=== PATIENT | male | born 1950 | race Caucasian/White ===

== ENCOUNTER 2017-02-07 17:10 | Emergency (ER) | payer OTHER ==
--- NOTE | 2017-02-07 17:43 | DIAGNOSTIC IMAGING REPORT ---
PROCEDURE: XR CHEST 2 VIEW INDICATION: SHORTNESS OF BREATH TECHNIQUE: PA and lateral views. COMPARISON: Compared to chest x-ray and 04/06/2016. FINDINGS: Lungs are clear. Heart and mediastinum are normal. There is reversal of mid thoracic kyphosis with mild to moderate degenerative changes at IMPRESSION: 1. Reversal of mid thoracic kyphosis with degenerative changes. 2. Otherwise negative chest.
--- NOTE | 2017-02-07 20:46 | ED NURSING NOTES ---
Clinical Report - Nurses [facility] [address] [place] [address] 02/07/2017 17:12 Patient: CAMPOS WAN TRIAGE Triage time 17:16. Acuity: LEVEL 3. Chief Complaint: COUGH and (Was put on Mometasone on Wednesday; says his cough he has had a while has gotten worse. Reports his back hurts from coughing. Says Wednesday he was afraid to lay down and go to sleep because he was afraid of not waking up because "in the lungs it was rattling."). Alert. --17:23 Bruce Washington R.N. 17:16 02/07/17. BP: 125/96 (regular adult cuff) taken on the left arm, via an automated monitor, while lying. HR: 102 (tachycardic). RR: 24 (regular, labored and rapid). O2 saturation: 97% on room air. Temp: 98 F (oral). Pain level now: 05/06. --17:23 Bruce Washington R.N. Weight: 90.7 kg stated. Height/Length: 70 inches Per Patient. BMI: 28.7. --17:17 Bruce Washington R.N. Medications AmLODIPine Besylate Oral (Tablet 5 mg) 1 tablet, daily. ASA Oral 81mg , daily. Rosuvastatin Calcium Oral (Tablet 40 mg), at bedtime. Spironolactone Oral (Tablet 50 mg), 2x a day. Sulfazine Oral (Tablet 500 mg) 3 tabs , 2 x daily. --17:18 Bruce Washington R.N. Mometasone Furoate Inhalation (Aerosol Powder Breath Activated 220 mcg/inh) 2 puffs, twice daily. --17:18 Bruce Washington R.N. Omalizumab Subcutaneous 350 mg, once monthly. --17:24 Bruce Washington R.N. SulfaSALAzine Oral (Tablet 500 mg) 3 tabs, 2x a day. --17:25 Bruce Washington R.N. Albuterol Sulfate Inhalation 90 mcg, PRN. --17:25 Bruce Washington R.N. Albuterol Sulfate HFA Inhalation. Cholecalciferol Oral (Tablet 1000 unit) 1 tablet. --17:26 Bruce Washington R.N. Metoprolol Tartrate Oral (Tablet 25 mg) 3 tabs, twice daily. --17:27 Bruce Washington R.N. Nitroglycerin Sublingual 0.4 mg, PRN. --17:27 Bruce Washington R.N. The following entry was struck by Bruce Washington R.N., 17:28 (02/07/17) Reason - other. [facility] Niacin Oral 500 mg, 3x a day. --17:18 Bruce Washington R.N. --END STRIKE>> The following entry was struck by Bruce Washington R.N., 17:28 (02/07/17) Reason - other. [facility]-- Folic Acid Oral. --17:18 Bruce Washington R.N. --END STRIKE>> The following entry was struck by Bruce Washington R.N., 17:27 (02/07/17) Reason - other. [facility]-- CycloSPORINE Oral 50mg , 2 x daily. --17:18 Bruce Washington R.N. --END STRIKE>> The following entry was struck by Bruce Washington R.N., 17:27 (02/07/17) Reason - other. [facility]-- Omeprazole Oral 20 mg, daily. --17:18 Bruce Washington R.N. --END STRIKE>> The following entry was struck by Bruce Washington R.N., 17:27 (02/07/17) Reason - other. [facility]-- Cyanocoballamin 1000mg, daily. --17:18 Bruce Washington R.N. --END STRIKE>> The following entry was struck and corrected by Bruce Washington R.N., 17:26 (02/07/17) Reason for correction - other(correction). <<[facility] ENTRY-- AmLODIPine Besylate Oral 10 mg, daily. --17:18 Bruce Washington R.N. --END STRIKE>> The following entry was struck and corrected by Bruce Washington R.N., 17:25 (02/07/17) Reason for correction - other(correction). <<[facility] ENTRY-- Mometasone Furoate Inhalation. --17:18 Bruce Washington R.N. --END STRIKE>> The following entry was struck and corrected by Bruce Washington R.N., 17:24 (02/07/17) Reason for correction - other(correction). <<[facility] ENTRY-- Rosuvastatin Calcium Oral 5 mg, daily. --17:18 Bruce Washington R.N. --END STRIKE>> The following entry was struck and corrected by Bruce Washington R.N., 17:23 (02/07/17) Reason for correction - other(correction). <<STRICKEN ENTRY-- Spironolactone Oral (Tablet 25 mg) 1 tablet, 2x a day. --17:18 Bruce Washington R.N. --END STRIKE>>. Medication/allergy information source: the patient. --17:23 Bruce Washington R.N. Allergies LIsinopril. --17:18 Bruce Washington R.N. History Arrived by private vehicle. Historian: patient. Unaccompanied. Primary physician (at the [facility]). Onset. (Ongoing for a few days). He has had fatigue, chest pain (Relates it to the cough), difficulty breathing and pedal edema. He has had a cough (Mostly dry, sometimes productive). No chills, fever or sweating episodes. Denies muscle aches or poor appetite. He has not had weight loss. Treatment CREDIT PROCESSOR: None. SOCIAL HX: Never smoker. Heavy alcohol use; consumes four beers a day. No drug use. He has not traveled outside the [place] The patient was not exposed to MRSA. ABUSE ASSESSMENT: Abuse assessment: The patient was asked "Do you feel safe in your home?" and "Has anyone hurt you or threatened to hurt you?". No report of abuse. SELF HARM ASSESSMENT: A self harm assessment was performed. The patient answered "no" to the question "Do you have thoughts of harming or killing yourself?" and "Have you recently had thoughts about harming or killing others?". FALL RISK ASSESSMENT: Fall risk assessment completed. No fall risk identified. NUTRITIONAL RISK ASSESSMENT: The nutritional risk assessment revealed no deficiencies. LEARNING NEEDS ASSESSMENT: The learning needs assessment revealed no barriers. FUNCTIONAL ASSESSMENT: Functional assessment performed: wears glasses- this visual impairment is an ongoing problem. SKIN INTEGRITY ASSESSMENT: Skin integrity risk assessment completed. No skin integrity risk identified. --17:23 Bruce Washington R.N. PROBLEMS: Angina. Coronary Artery Disease. Hyperlipidemia. Angioedema. Immunizations. Cancer. Hypertension. Hypercholesterolemia. Myocardial Infarction. --17:18 Bruce Washington R.N. Pericarditis. --17:21 Bruce Washington R.N. ADDITIONAL SURGERIES: Right testicle removed . Surgery on 3rd and 4th digits right hand . Tonsillectomy. --17:18 Bruce Washington R.N. Assessment GENERAL / NEURO / PSYCH: Appears in distress. Timothy Coma Scale: 15- eyes open spontaneously (4); best verbal response- oriented x 4 (5); best motor response- obeys commands (6). RESPIRATORY: Mild respiratory distress. Mild accessory muscle use. Nonproductive cough. SKIN: Skin is warm and dry. --17:23 Bruce Washington R.N. Interventions ID and allergy band on patient. To treatment room. --17:23 Bruce Washington R.N. PHYSICAL ASSESSMENT Ambulatory to room. GENERAL / NEURO / PSYCH: Alert. Oriented X 4. Appears in no acute distress. HEENT: Pupils equal, round and reactive to light. Ears within normal limits. Nares within normal limits. Mouth within normal limits upon inspection. Pharynx within normal limits. Voice within normal limits. Mucous membranes are pink. RESPIRATORY: Mild respiratory distress. The patient can speak a few words at a time. Cough. ( non productive cough. +exp wheezing noted bilat). CVS: Normal sinus rhythm noted. Capillary refill less than 2 seconds. SKIN: Skin is warm and dry. Normal skin turgor. --19:05 Bruce Washington R.N. NURSING PROGRESS NOTES The initial plan of care for this patient has been created This plan of care was discussed with the patient. monitor technician, pulse oximeter and NIBP monitor placed on patient; telemetry monitor- Lead II. Patient gowned. Reassurance given to the patient. Call light placed in reach. Side rails up x 1. Bed placed in lowest position. Brakes of bed on. Patient ready for evaluation- ED physician and PA notified. --17:23 Bruce Washington R.N. EKG time: (1730). EKG was ordered, performed by a tech and shown to the ED physician. --17:28 Bruce Washington R.N. 17:35 02/07/2017 Site #1 started via IV in the right wrist with an 20g angiocath, with aseptic technique and good blood return; one attempt. Blood drawn: rainbow set. Labeled in the presence of the patient. Saline lock flushed with 10 mL saline. --17:35 Bruce Washington R.N. 17:57 02/07/2017 SOLU-MEDROL (MethylPREDNISolone Sodium Succ) IVP 80 mg given over 2 minute(s) via site #1. Allergies verified and confirmed 5 rights. IV patency established. IV site checked: no pain, redness, or swelling. IV flushed thoroughly pre- and post-medication administration. --17:57 Bruce Washington R.N. 17:59 02/07/2017 Albuterol Neb TX Nebulizer 2.5 mg given. Given by the respiratory therapist. Allergies verified and confirmed 5 rights. --17:59 Bruce Washington R.N. ( Report received from Bruce Cueva RN). --19:03 Adair Villaseñor R.N. 19:38 02/07/2017 Started 2 gm of Rocephin (CefTRIAXone Sodium) IVPB in bag #1 50 mL; at 110 mL/hr over 20 minute(s) via site #1 via IV pump. Allergies verified and confirmed 5 rights. IV patency established. IV site checked: no pain, redness, or swelling. IV flushed thoroughly pre- and post-medication administration. --19:40 Adair Villaseñor R.N. 20:38 02/07/2017 Albuterol Neb TX Nebulizer 1 unit dose given. Given by the respiratory therapist. Allergies verified and confirmed 5 rights. --20:38 KeziaGerson hopkins. DISPOSITION / DISCHARGE 21:00 02/07/2017 Site #1 removed upon discharge. Bandaid applied. --21:00 Chani Rhodes R.N. 21:00 02/07/17. Condition at departure: improved. No learning barriers present. Discharge instructions provided and reviewed with the patient. Reviewed medication(s) side effects, precautions, dosing and course information. Prescription(s) given to the patient. Activity restrictions (rest) reviewed. Patient verbalized understanding. Written instructions provided in Egyptian. The patient was discharged by the physician. He was discharged home. He left the Emergency Department ambulatory and via private vehicle. Patient driving. --21:00 Chani Rhodes R.N. 20:56 02/07/17. BP: 129/91 (regular adult cuff) taken on the left arm. HR: 95 (irregular). RR: 25. O2 saturation: 96% on room air. Temp: 98.1 F (oral). Pain level now: 8/10. Additional comments: "all over from coughing". --21:00 Chani Rhodes R.N. Departure time: 21:Feb 07 2017. --21:04 Chani Rhodes R.N. Locked/Released at 02/07/2017 21:41 by Chani Rhodes R.N.
--- NOTE | 2017-02-07 20:46 | ED ORDER SUMMARY ---
..... Patient: CAMPOS WAN OrderSheet [facility] VisitID: [id number] [address] [place] [address] 66y, M Registration Date/Time: 02/07/2017 ORDER SHEET Weight: 90.7 kg (stated) Allergies: LIsinopril GENERAL ORDERS: Chest 2V Urgent (17:29 02/07/2017 EKoroleva P.A.-C) (Ack 17:31 Jamil) (17:35 LWhalen R.N.) Sandwich Machine Operator (Continuous) (17:29 02/07/2017 EKoroleva P.A.-C) (17:32 JDeElena R.N.) Cardiac Panel Stat (17:02/07/2017 EKoroleva P.A.-C) (Ack 17:31 Jamil) (17:34 LWhalen R.N.) BNP Urgent (17:02/07/2017 EKoroleva P.A.-C) (Ack 17:31 Brockroniel) (17:34 LWhalen R.N.) EKG - ER Stat (17:29 02/07/2017 EKoroleva P.A.-C) (Ack 17:31 Brockroniel) (17:32 JDeElena R.N.) MEDICATION ORDERS: Albuterol Neb Tx 2.5 mg (NOW, HHN) (17:49 02/07/2017 Elvi URENA) (17:59 LWhalen R.N.) Albuterol Neb Tx 2.5 mg (NOW, HHN) (20:25 02/07/2017 Elvi URENA) (Ack 20:27 [facility] ER Trade Recruiter) (20:38 MRobideau) IV FLUIDS: IV Saline Lock (17:29 02/07/2017 EKoroleva P.A.-C) (17:35 LWhalen R.N.) Solu-MEDROL IV 80 mg (NOW) (17:55 02/07/2017 Elvi URENA) (17:57 LWhalen R.N.) Rocephin IV 2 gm/50mL (NOW) (19:23 02/07/2017 Elvi URENA) (19:40 Delmer Anna) ORDER SHEET NOTES: [Electronically signed by Chani Rhodes R.N. (21:41 02/07/2017)] [Electronically signed by Davion Jack MD (09:39 02/08/2017)] [Electronically locked/signed by Chani Rhodes R.N. (21:41 02/07/2017)]
--- NOTE | 2017-02-07 20:46 | ED CLINICAL REPORT ---
Clinical Report - Physicians/Mid Levels [facility] [address] [place] [address] 02/07/2017 17:12 [facility]AN [id number] Time Seen: 17:33 Feb 07 2017. Arrived- By private vehicle. Historian- patient. CPT: ER phys charges level 4 plus (#[id number]). EKG interpretation (#[id number]). HISTORY OF PRESENT ILLNESS Chief Complaint: COUGH. 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 and is still present (worse). The illness is described as moderate. The patient has had a cough and chest discomfort. No fever, muscle aches or chills. Additional history - No known contact with a sick individual. Similar symptoms previously: Recent medical care: Not recently seen/assessed. REVIEW OF SYSTEMS No headache, eye discomfort, nausea, vomiting or diarrhea. No abdominal pain, hay fever, pedal edema, calf pain or difficulty with urination. No skin rash, enlarged lymph nodes or joint pain. All systems otherwise negative, except as recorded above. PAST HISTORY Angina. Coronary Artery Disease. Hyperlipidemia. Angioedema. Immunizations. Testicular Cancer. Hypertension. Hypercholesterolemia. Myocardial Infarction. Pericarditis. Cough variant asthma Hyperetensive renal insufficiency ADDITIONAL SURGERIES: Right testicle removed . Surgery on 3rd and 4th digits right hand . Tonsillectomy. Hyperlipidemia. Gastroesophageal reflux. Medications: Nitroglycerin Sublingual 0.4 mg, PRN. Metoprolol Tartrate Oral (Tablet 25 mg) 3 tabs, twice daily. Albuterol Sulfate HFA Inhalation. Cholecalciferol Oral (Tablet 1000 unit) 1 tablet. Albuterol Sulfate Inhalation 90 mcg, PRN. SulfaSALAzine Oral (Tablet 500 mg) 3 tabs, 2x a day. Omalizumab Subcutaneous 350 mg, once monthly. Mometasone Furoate Inhalation (Aerosol Powder Breath Activated 220 mcg/inh) 2 puffs, twice daily. AmLODIPine Besylate Oral (Tablet 5 mg) 1 tablet, daily. ASA Oral 81mg , daily. Rosuvastatin Calcium Oral (Tablet 40 mg), at bedtime. Spironolactone Oral (Tablet 50 mg), 2x a day. Sulfazine Oral (Tablet 500 mg) 3 tabs , 2 x daily. Allergies: LIsinopril. SOCIAL HISTORY Never smoker. Heavy alcohol use. No drug use. ADDITIONAL NOTES The nursing notes have been reviewed. PHYSICAL EXAM Vital Signs: 02/07/2017 17:16 BP: 125/96. HR: 102. RR: 24. O2 saturation: 97%. Temp: 98 F. Pain level now: 8/10. Appearance: Alert. Patient in mild distress. Eyes: Eyes normal inspection. ENT: Ears normal. Nose normal. Pharynx normal. Neck: Normal inspection. CVS: Tachycardia. Heart sounds normal. Pulses normal. Respiratory: Moderate respiratory distress with tachypnea (constant cough. No whoop.). Expiratory moderate bilateral wheezes posteriorly. Abdomen: Soft and nontender. Back: Normal inspection. Skin: Skin warm. Normal skin color. No rash. Extremities: Extremities exhibit normal ROM. No calf tenderness. No lower extremity edema. Neuro: Oriented X 3. No motor deficit. No sensory deficit. LABS, X-RAYS, AND EKG EKG: Rate: 94. Atrial fibrillation. Normal QRS complex. Q waves in lead II, III and aVF. Decreased QRS voltage in the precordial and limb leads. Left axis deviation. Non-specific ST segment / T wave abnormalities. Prior EKG unavailable. The study has been interpreted contemporaneously. The study has been independently viewed by me. The EKG appears to be a good tracing. Chest X-ray: Normal heart size. Mediastinum normal. No infiltrate. (thoracic DJD). Views: PA and lateral. The X-rays were independently viewed by me and interpreted by the radiologist. Laboratory Tests: CBC w Diff: (GALDINO: 02/07/2017 17:35) ( MsgRcvd 02/07/2017 17:49) Final results Test Result Flag Units (Reference) WHITE BLOOD COUNT 8.8 K/uL (4.5-11.5) RED BLOOD COUNT 4.79 M/uL (4.50-5.90) HEMOGLOBIN 15.1 gm/dL (13.5-17.5) HEMATOCRIT 44.8 % (41.0-53.0) MEAN CELL VOLUME 93 fL (80-100) MEAN CORPUSCULAR HGB 32 pg (26-34) MEAN CORPUSCULAR HGB CONC 34 g/dL (31-37) RED CELL DISTRIBUTION WIDTH 13.9 % (11.6-14.8) PLATELET COUNT 198 K/uL (150-400) NEUTROPHIL % 71.4 % (50-75) LYMPH % 15.8 L % (25-40) MONO % 6.8 % (3-14) EOSINOPHIL % 5.8 H % (0-4) BASOPHIL % 0.2 % (0-2) BNP: (GALDINO: 02/07/2017 17:35) ( [facility] 18[facility]08) Final results Test Result Flag Units (Reference) B-TYPE NATRIURETIC PEPTIDE 277 H pg/ml (5-100) CHEM 13 PANEL: (GALDINO: 02/07/2017 17:35) ( [facility] 02/07/2017 18:43) Final results Test Result Flag Units (Reference) GLUCOSE 125 H mg/dL (70-110) BUN 21 H mg/dL (7-18) CREATININE 1.8 H mg/dL (0.6-1.3) Estimated GFR 40.20 mL/min Estimated GFR- 48.72 mL/min Note: Persistent reduction over 3 months in eGFR<60 mL/min/1.73 m2 defines CKD. Patients with eGFR values>=60 mL/min/1.73 m2 may also have CKD if evidence ofpersistent proteinuria. Additional information may be foundat www.kidney.org. SODIUM 144 mmol/L (136-145) POTASSIUM 3.8 mmol/L (3.5-5.1) CHLORIDE 108 H mmol/L (98-107) CARBON DIOXIDE 22 mmol/L (21-32) CALCIUM 8.6 mg/dL (8.5-10.1) TOTAL PROTEIN 7.1 g/dL (6.4-8.2) ALBUMIN 3.5 g/dL (3.3-5.0) BILIRUBIN, TOTAL 0.4 mg/dL (0.0-1.0) ALKALINE PHOSPHATASE 109 U/L (46-116) AST (SGOT) 29 U/L (15-37) ALT (SGPT) 42 U/L (12-78) CPK 373 H U/L (24-260) MAGNESIUM 1.6 L mg/dL (1.8-2.4) CK-MB 3.2 ng/mL (0.5-3.2) %CKMB 0.9 % (0.0-4.0) TROPONIN I <0.05 L ng/mL (0.00-1.5) TROPONIN REFERENCE RANGE:<0.1 NEGATIVE0.1-1.5 INDETERMINANT>1.5 POSITIVE . PROGRESS AND PROCEDURES Course of Care: Duoneb HHN Solumedrol 80 mg IV Rocephin 2g IV Pt much better after treatment and wheezing nearly resolved. 20:00 02/07/17. records from the [place] show no hx of a-fib. ppatient has new onset atrial fibrillation. Rate is controlled so no need for medication. He is already on beta brianna. Discussed the increased stroke risk related to atrial fibrillation and the need for management either by conversion to normal sinus rhythm or for anticoagulation. Patient is aware and will call his PCP tomorrow to talk about the atrial fibrillation and further management. Patient/family counseled. Disposition: Discharged. Condition: stable and improved. CLINICAL IMPRESSION Mild persistent and intermittent asthma with an acute exacerbation. No status asthmaticus. Acute bacterial bronchitis. Acute bronchospasm New onset atrial fibrillation with controlled rate. INSTRUCTIONS No strenuous activity. Rest. Drink plenty of fluids. Warnings: Further evaluation is necessary. GENERAL WARNINGS: Return or contact your physician immediately if your condition worsens or changes unexpectedly, if not improving as expected, or if other problems arise. Your Current Medications: STOP TAKING THE FOLLOWING MEDICATIONS: Mometasone Furoate Inhalation : Aerosol Powder Breath Activated 220 mcg/inh, 2 puffs twice daily. CONTINUE TAKING THE FOLLOWING MEDICATIONS: Albuterol Sulfate HFA Inhalation. Albuterol Sulfate Inhalation : 90 mcg PRN. AmLODIPine Besylate Oral : Tablet 5 mg, 1 tablet daily. ASA Oral : 81mg daily. Cholecalciferol Oral : Tablet 1000 unit, 1 tablet. Metoprolol Tartrate Oral : Tablet 25 mg, 3 tabs twice daily. Nitroglycerin Sublingual : 0.4 mg PRN. Omalizumab Subcutaneous : 350 mg once monthly. Rosuvastatin Calcium Oral : Tablet 40 mg, at bedtime. Spironolactone Oral : Tablet 50 mg, 2x a day. SulfaSALAzine Oral : Tablet 500 mg, 3 tabs 2x a day. Sulfazine Oral : Tablet 500 mg, 3 tabs 2 x daily. Prescription Medications: Prednisone 20 mg: take 3 orally every day for 5 days. Dispense fifteen (15). No refills. Hydrocodone / APAP Liquid 7.5mg/325mg/15 mL: take ten (10) mL orally every 4 hours as needed. Dispense two hundred (200) mL. No refill. (for cough) Doxycycline 100 mg: Take 1 capsule orally every 12 hours for 10 days. No refill. Follow-up: Follow up with your doctor in two days. Call for the next available appointment. Reason for referral: because of new atrial fibrillation and cough. . Summary of care provided to patient. Understanding of the discharge instructions verbalized by patient. (Electronically signed by Davion Jack MD 02/08/2017 9:39)
--- NOTE | 2017-02-07 20:46 | ED CLINICAL REPORT ---
Clinical Report - Physicians/Mid Levels [facility] [address] [place] [address] 02/07/2017 17:12 [id number] Time Seen: 17:33 Feb 07 2017. Arrived- By private vehicle. Historian- patient. CPT: ER phys charges level 4 plus (#636301). EKG interpretation (#[id number]). HISTORY OF PRESENT ILLNESS Chief Complaint: COUGH. 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 and is still present (worse). The illness is described as moderate. The patient has had a cough and chest discomfort. No fever, muscle aches or chills. Additional history - No known contact with a sick individual. Similar symptoms previously: Recent medical care: Not recently seen/assessed. REVIEW OF SYSTEMS No headache, eye discomfort, nausea, vomiting or diarrhea. No abdominal pain, hay fever, pedal edema, calf pain or difficulty with urination. No skin rash, enlarged lymph nodes or joint pain. All systems otherwise negative, except as recorded above. PAST HISTORY Angina. Coronary Artery Disease. Hyperlipidemia. Angioedema. Immunizations. Testicular Cancer. Hypertension. Hypercholesterolemia. Myocardial Infarction. Pericarditis. Cough variant asthma Hyperetensive renal insufficiency ADDITIONAL SURGERIES: Right testicle removed . Surgery on 3rd and 4th digits right hand . Tonsillectomy. Hyperlipidemia. Gastroesophageal reflux. Medications: Nitroglycerin Sublingual 0.4 mg, PRN. Metoprolol Tartrate Oral (Tablet 25 mg) 3 tabs, twice daily. Albuterol Sulfate HFA Inhalation. Cholecalciferol Oral (Tablet 1000 unit) 1 tablet. Albuterol Sulfate Inhalation 90 mcg, PRN. SulfaSALAzine Oral (Tablet 500 mg) 3 tabs, 2x a day. Omalizumab Subcutaneous 350 mg, once monthly. Mometasone Furoate Inhalation (Aerosol Powder Breath Activated 220 mcg/inh) 2 puffs, twice daily. AmLODIPine Besylate Oral (Tablet 5 mg) 1 tablet, daily. ASA Oral 81mg , daily. Rosuvastatin Calcium Oral (Tablet 40 mg), at bedtime. Spironolactone Oral (Tablet 50 mg), 2x a day. Sulfazine Oral (Tablet 500 mg) 3 tabs , 2 x daily. Allergies: LIsinopril. SOCIAL HISTORY Never smoker. Heavy alcohol use. No drug use. ADDITIONAL NOTES The nursing notes have been reviewed. PHYSICAL EXAM Vital Signs: 02/07/2017 17:16 BP: 125/96. HR: 102. RR: 24. O2 saturation: 97%. Temp: 98 F. Pain level now: 8/10. Appearance: Alert. Patient in mild distress. Eyes: Eyes normal inspection. ENT: Ears normal. Nose normal. Pharynx normal. Neck: Normal inspection. CVS: Tachycardia. Heart sounds normal. Pulses normal. Respiratory: Moderate respiratory distress with tachypnea (constant cough. No whoop.). Expiratory moderate bilateral wheezes posteriorly. Abdomen: Soft and nontender. Back: Normal inspection. Skin: Skin warm. Normal skin color. No rash. Extremities: Extremities exhibit normal ROM. No calf tenderness. No lower extremity edema. Neuro: Oriented X 3. No motor deficit. No sensory deficit. LABS, X-RAYS, AND EKG EKG: Rate: 94. Atrial fibrillation. Normal QRS complex. Q waves in lead II, III and aVF. Decreased QRS voltage in the precordial and limb leads. Left axis deviation. Non-specific ST segment / T wave abnormalities. Prior EKG unavailable. The study has been interpreted contemporaneously. The study has been independently viewed by me. The EKG appears to be a good tracing. Chest X-ray: Normal heart size. Mediastinum normal. No infiltrate. (thoracic DJD). Views: PA and lateral. The X-rays were independently viewed by me and interpreted by the radiologist. Laboratory Tests: CBC w Diff: (GALDINO: 02/07/2017 17:35) ( MsgRcvd 02/07/2017 17:49) Final results Test Result Flag Units (Reference) WHITE BLOOD COUNT 8.8 K/uL (4.5-11.5) RED BLOOD COUNT 4.79 M/uL (4.50-5.90) HEMOGLOBIN 15.1 gm/dL (13.5-17.5) HEMATOCRIT 44.8 % (41.0-53.0) MEAN CELL VOLUME 93 fL (80-100) MEAN CORPUSCULAR HGB 32 pg (26-34) MEAN CORPUSCULAR HGB CONC 34 g/dL (31-37) RED CELL DISTRIBUTION WIDTH 13.9 % (11.6-14.8) PLATELET COUNT 198 K/uL (150-400) NEUTROPHIL % 71.4 % (50-75) LYMPH % 15.8 L % (25-40) MONO % 6.8 % (3-14) EOSINOPHIL % 5.8 H % (0-4) BASOPHIL % 0.2 % (0-2) BNP: (GALDINO: 02/07/2017 17:35) ( [facility] [place]/07[place] 18:08) Final results Test Result Flag Units (Reference) B-TYPE NATRIURETIC PEPTIDE 277 H pg/ml (5-100) CHEM 13 PANEL: (GALDINO: 02/07/2017 17:35) ( [facility] [place]07[facility] 18:43) Final results Test Result Flag Units (Reference) GLUCOSE 125 H mg/dL (70-110) BUN 21 H mg/dL (7-18) CREATININE 1.8 H mg/dL (0.6-1.3) Estimated GFR 40.20 mL/min Estimated GFR- 48.72 mL/min Note: Persistent reduction over 3 months in eGFR<60 mL/min/1.73 m2 defines CKD. Patients with eGFR values>=60 mL/min/1.73 m2 may also have CKD if evidence ofpersistent proteinuria. Additional information may be foundat www.kidney.org. SODIUM 144 mmol/L (136-145) POTASSIUM 3.8 mmol/L (3.5-5.1) CHLORIDE 108 H mmol/L (98-107) CARBON DIOXIDE 22 mmol/L (21-32) CALCIUM 8.6 mg/dL (8.5-10.1) TOTAL PROTEIN 7.1 g/dL (6.4-8.2) ALBUMIN 3.5 g/dL (3.3-5.0) BILIRUBIN, TOTAL 0.4 mg/dL (0.0-1.0) ALKALINE PHOSPHATASE 109 U/L (46-116) AST (SGOT) 29 U/L (15-37) ALT (SGPT) 42 U/L (12-78) CPK 373 H U/L (24-260) MAGNESIUM 1.6 L mg/dL (1.8-2.4) CK-MB 3.2 ng/mL (0.5-3.2) %CKMB 0.9 % (0.0-4.0) TROPONIN I <0.05 L ng/mL (0.00-1.5) TROPONIN REFERENCE RANGE:<0.1 NEGATIVE0.1-1.5 INDETERMINANT>1.5 POSITIVE . PROGRESS AND PROCEDURES Course of Care: Duoneb HHN Solumedrol 80 mg IV Rocephin 2g IV Pt much better after treatment and wheezing nearly resolved. 20:00 02/07/17. records from the [place] show no hx of a-fib. ppatient has new onset atrial fibrillation. Rate is controlled so no need for medication. He is already on beta brianna. Discussed the increased stroke risk related to atrial fibrillation and the need for management either by conversion to normal sinus rhythm or for anticoagulation. Patient is aware and will call his PCP tomorrow to talk about the atrial fibrillation and further management. Patient/family counseled. Disposition: Discharged. Condition: stable and improved. CLINICAL IMPRESSION Mild persistent and intermittent asthma with an acute exacerbation. No status asthmaticus. Acute bacterial bronchitis. Acute bronchospasm New onset atrial fibrillation with controlled rate. INSTRUCTIONS No strenuous activity. Rest. Drink plenty of fluids. Warnings: Further evaluation is necessary. GENERAL WARNINGS: Return or contact your physician immediately if your condition worsens or changes unexpectedly, if not improving as expected, or if other problems arise. Your Current Medications: STOP TAKING THE FOLLOWING MEDICATIONS: Mometasone Furoate Inhalation : Aerosol Powder Breath Activated 220 mcg/inh, 2 puffs twice daily. CONTINUE TAKING THE FOLLOWING MEDICATIONS: Albuterol Sulfate HFA Inhalation. Albuterol Sulfate Inhalation : 90 mcg PRN. AmLODIPine Besylate Oral : Tablet 5 mg, 1 tablet daily. ASA Oral : 81mg daily. Cholecalciferol Oral : Tablet 1000 unit, 1 tablet. Metoprolol Tartrate Oral : Tablet 25 mg, 3 tabs twice daily. Nitroglycerin Sublingual : 0.4 mg PRN. Omalizumab Subcutaneous : 350 mg once monthly. Rosuvastatin Calcium Oral : Tablet 40 mg, at bedtime. Spironolactone Oral : Tablet 50 mg, 2x a day. SulfaSALAzine Oral : Tablet 500 mg, 3 tabs 2x a day. Sulfazine Oral : Tablet 500 mg, 3 tabs 2 x daily. Prescription Medications: Prednisone 20 mg: take 3 orally every day for 5 days. Dispense fifteen (15). No refills. Hydrocodone / APAP Liquid 7.5mg/325mg/15 mL: take ten (10) mL orally every 4 hours as needed. Dispense two hundred (200) mL. No refill. (for cough) Doxycycline 100 mg: Take 1 capsule orally every 12 hours for 10 days. No refill. Follow-up: Follow up with your doctor in two days. Call for the next available appointment. Reason for referral: because of new atrial fibrillation and cough. . Summary of care provided to patient. Understanding of the discharge instructions verbalized by patient. (Electronically signed by Davion Jack MD 02/08/2017 9:39)
--- NOTE | 2017-02-07 20:46 | ED ORDER SUMMARY ---
..... Patient: CAMPOS WAN OrderSheet [facility] VisitID: [id number] [address] [place] [address] 66y, M Registration Date/Time: 02/07/2017 ORDER SHEET Weight: 90.7 kg (stated) Allergies: LIsinopril GENERAL ORDERS: Chest 2V Urgent (17:29 02/07/2017 EKoroleva P.A.-C) (Ack 17:31 Jamil) (17:35 LWhalen R.N.) Copier Operator (Continuous) (17:29 02/07/2017 EKoroleva P.A.-C) (17:32 JDeElena R.N.) Cardiac Panel Stat (17:02/07/2017 EKoroleva P.A.-C) (Ack 17:31 Jamil) (17:34 LWhalen R.N.) BNP Urgent (17:02/07/2017 EKoroleva P.A.-C) (Ack 17:31 Brockroniel) (17:34 LWhalen R.N.) EKG - ER Stat (17:29 02/07/2017 EKoroleva P.A.-C) (Ack 17:31 Brockroniel) (17:32 JDeElena R.N.) MEDICATION ORDERS: Albuterol Neb Tx 2.5 mg (NOW, HHN) (17:49 02/07/2017 Elvi URENA) (17:59 LWhalen R.N.) Albuterol Neb Tx 2.5 mg (NOW, HHN) (20:25 02/07/2017 Elvi URENA) (Ack 20:27 [facility] ER Length Control Tester) (20:38 MRobideau) IV FLUIDS: IV Saline Lock (17:29 02/07/2017 EKoroleva P.A.-C) (17:35 LWhalen R.N.) Solu-MEDROL IV 80 mg (NOW) (17:55 02/07/2017 Elvi URENA) (17:57 LWhalen R.N.) Rocephin IV 2 gm/50mL (NOW) (19:23 02/07/2017 Elvi URENA) (19:40 Delmer Anna) ORDER SHEET NOTES: [Electronically signed by Chani Rhodes R.N. (21:41 02/07/2017)] [Electronically signed by Davion Jack MD (09:39 02/08/2017)] [Electronically locked/signed by Chani Rhodes R.N. (21:41 02/07/2017)]
--- NOTE | 2017-02-07 20:46 | ED NURSING NOTES ---
Clinical Report - Nurses [facility] [address] [place] [address] 02/07/2017 17:12 Patient: CAMPOS WAN TRIAGE Triage time 17:16. Acuity: LEVEL 3. Chief Complaint: COUGH and (Was put on Mometasone on Wednesday; says his cough he has had a while has gotten worse. Reports his back hurts from coughing. Says Wednesday he was afraid to lay down and go to sleep because he was afraid of not waking up because "in the lungs it was rattling."). Alert. --17:23 Bruce Washington R.N. 17:16 02/07/17. BP: 125/96 (regular adult cuff) taken on the left arm, via an automated monitor, while lying. HR: 102 (tachycardic). RR: 24 (regular, labored and rapid). O2 saturation: 97% on room air. Temp: 98 F (oral). Pain level now: 05/06. --17:23 Bruce Washington R.N. Weight: 90.7 kg stated. Height/Length: 70 inches Per Patient. BMI: 28.7. --17:17 Bruce Washington R.N. Medications AmLODIPine Besylate Oral (Tablet 5 mg) 1 tablet, daily. ASA Oral 81mg , daily. Rosuvastatin Calcium Oral (Tablet 40 mg), at bedtime. Spironolactone Oral (Tablet 50 mg), 2x a day. Sulfazine Oral (Tablet 500 mg) 3 tabs , 2 x daily. --17:18 Bruce Washington R.N. Mometasone Furoate Inhalation (Aerosol Powder Breath Activated 220 mcg/inh) 2 puffs, twice daily. --17:18 Bruce Washington R.N. Omalizumab Subcutaneous 350 mg, once monthly. --17:24 Bruce Washington R.N. SulfaSALAzine Oral (Tablet 500 mg) 3 tabs, 2x a day. --17:25 Bruce Washington R.N. Albuterol Sulfate Inhalation 90 mcg, PRN. --17:25 Bruce Washington R.N. Albuterol Sulfate HFA Inhalation. Cholecalciferol Oral (Tablet 1000 unit) 1 tablet. --17:26 Bruce Washington R.N. Metoprolol Tartrate Oral (Tablet 25 mg) 3 tabs, twice daily. --17:27 Bruce Washington R.N. Nitroglycerin Sublingual 0.4 mg, PRN. --17:27 Bruce Washington R.N. The following entry was struck by Bruce Washington R.N., 17:28 (02/07/17) Reason - other. <<[facility]-- Niacin Oral 500 mg, 3x a day. --17:18 Bruce Washington R.N. --END STRIKE>> The following entry was struck by Bruce Washington R.N., 17:28 (02/07/17) Reason - other. <<[facility]-- Folic Acid Oral. --17:18 Bruce Washington R.N. --END STRIKE>> The following entry was struck by Bruce Washington R.N., 17:27 (02/07/17) Reason - other. <<[facility]-- CycloSPORINE Oral 50mg , 2 x daily. --17:18 Bruce Washington R.N. --END STRIKE>> The following entry was struck by Bruce Washington R.N., 17:27 (02/07/17) Reason - other. <<[facility]-- Omeprazole Oral 20 mg, daily. --17:18 Bruce Washington R.N. --END STRIKE>> The following entry was struck by Bruce Washington R.N., 17:27 (02/07/17) Reason - other. <<[facility]-- Cyanocoballamin 1000mg, daily. --17:18 Bruce Washington R.N. --END STRIKE>> The following entry was struck and corrected by Bruce Washington R.N., 17:26 (02/07/17) Reason for correction - other(correction). <<[facility]-- AmLODIPine Besylate Oral 10 mg, daily. --17:18 Bruce Washington R.N. --END STRIKE>> The following entry was struck and corrected by Bruce Washington R.N., 17:25 (02/07/17) Reason for correction - other(correction). <<[facility]-- Mometasone Furoate Inhalation. --17:18 Bruce Washington R.N. --END STRIKE>> The following entry was struck and corrected by Bruce Washington R.N., 17:24 (02/07/17) Reason for correction - other(correction). <<[facility]-- Rosuvastatin Calcium Oral 5 mg, daily. --17:18 Bruce Washington R.N. --END STRIKE>> The following entry was struck and corrected by Bruce Washington R.N., 17:23 (02/07/17) Reason for correction - other(correction). <<[facility]-- Spironolactone Oral (Tablet 25 mg) 1 tablet, 2x a day. --17:18 Bruce Washington R.N. --END STRIKE>>. Medication/allergy information source: the patient. --17:23 Bruce Washington R.N. Allergies LIsinopril. --17:18 Bruce Washington R.N. History Arrived by private vehicle. Historian: patient. Unaccompanied. Primary physician (at the [place]). Onset. (Ongoing for a few days). He has had fatigue, chest pain (Relates it to the cough), difficulty breathing and pedal edema. He has had a cough (Mostly dry, sometimes productive). No chills, fever or sweating episodes. Denies muscle aches or poor appetite. He has not had weight loss. 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 SOCIAL HX: Never smoker. Heavy alcohol use; consumes four beers a day. No drug use. He has not traveled outside the [place] The patient was not exposed to MRSA. ABUSE ASSESSMENT: Abuse assessment: The patient was asked "Do you feel safe in your home?" and "Has anyone hurt you or threatened to hurt you?". No report of abuse. SELF HARM ASSESSMENT: A self harm assessment was performed. The patient answered "no" to the question "Do you have thoughts of harming or killing yourself?" and "Have you recently had thoughts about harming or killing others?". FALL RISK ASSESSMENT: Fall risk assessment completed. No fall risk identified. NUTRITIONAL RISK ASSESSMENT: The nutritional risk assessment revealed no deficiencies. LEARNING NEEDS ASSESSMENT: The learning needs assessment revealed no barriers. FUNCTIONAL ASSESSMENT: Functional assessment performed: wears glasses- this visual impairment is an ongoing problem. SKIN INTEGRITY ASSESSMENT: Skin integrity risk assessment completed. No skin integrity risk identified. --17:23 Bruce Washington R.N. PROBLEMS: Angina. Coronary Artery Disease. Hyperlipidemia. Angioedema. Immunizations. Cancer. Hypertension. Hypercholesterolemia. Myocardial Infarction. --17:18 Bruce Washington R.N. Pericarditis. --17:21 Bruce Washington R.N. ADDITIONAL SURGERIES: Right testicle removed . Surgery on 3rd and 4th digits right hand . Tonsillectomy. --17:18 Bruce Washington R.N. Assessment GENERAL / NEURO / PSYCH: Appears in distress. Timothy Coma Scale: 15- eyes open spontaneously (4); best verbal response- oriented x 4 (5); best motor response- obeys commands (6). RESPIRATORY: Mild respiratory distress. Mild accessory muscle use. Nonproductive cough. SKIN: Skin is warm and dry. --17:23 Bruce Washington R.N. Interventions ID and allergy band on patient. To treatment room. --17:23 Bruce Washington R.N. PHYSICAL ASSESSMENT Ambulatory to room. GENERAL / NEURO / PSYCH: Alert. Oriented X 4. Appears in no acute distress. HEENT: Pupils equal, round and reactive to light. Ears within normal limits. Nares within normal limits. Mouth within normal limits upon inspection. Pharynx within normal limits. Voice within normal limits. Mucous membranes are pink. RESPIRATORY: Mild respiratory distress. The patient can speak a few words at a time. Cough. ( non productive cough. +exp wheezing noted bilat). CVS: Normal sinus rhythm noted. Capillary refill less than 2 seconds. SKIN: Skin is warm and dry. Normal skin turgor. --19:05 Bruce Washington R.N. NURSING PROGRESS NOTES The initial plan of care for this patient has been created This plan of care was discussed with the patient. filter helper, pulse oximeter and NIBP monitor placed on patient; patient insurance clerk- Lead II. Patient gowned. Reassurance given to the patient. Call light placed in reach. Side rails up x 1. Bed placed in lowest position. Brakes of bed on. Patient ready for evaluation- ED physician and PA notified. --17:23 Bruce Washington R.N. EKG time: (1730). EKG was ordered, performed by a tech and shown to the ED physician. --17:28 Bruce Washington R.N. 17:35 02/07/2017 Site #1 started via IV in the right wrist with an 20g angiocath, with aseptic technique and good blood return; one attempt. Blood drawn: rainbow set. Labeled in the presence of the patient. Saline lock flushed with 10 mL saline. --17:35 Bruce Washington R.N. 17:57 02/07/2017 SOLU-MEDROL (MethylPREDNISolone Sodium Succ) IVP 80 mg given over 2 minute(s) via site #1. Allergies verified and confirmed 5 rights. IV patency established. IV site checked: no pain, redness, or swelling. IV flushed thoroughly pre- and post-medication administration. --17:57 Bruce Washington R.N. 17:59 02/07/2017 Albuterol Neb TX Nebulizer 2.5 mg given. Given by the respiratory therapist. Allergies verified and confirmed 5 rights. --17:59 Bruce Washington R.N. ( Report received from Bruce Cueva RN). --19:03 Adair Villaseñor R.N. 19:38 02/07/2017 Started 2 gm of Rocephin (CefTRIAXone Sodium) IVPB in bag #1 50 mL; at 110 mL/hr over 20 minute(s) via site #1 via IV pump. Allergies verified and confirmed 5 rights. IV patency established. IV site checked: no pain, redness, or swelling. IV flushed thoroughly pre- and post-medication administration. --19:40 Adair Villaseñor R.N. 20:38 02/07/2017 Albuterol Neb TX Nebulizer 1 unit dose given. Given by the respiratory therapist. Allergies verified and confirmed 5 rights. --20:38 KeziaGerson hopkins. DISPOSITION / DISCHARGE 21:00 02/07/2017 Site #1 removed upon discharge. Bandaid applied. --21:00 Chani Rhodes R.N. 21:00 02/07/17. Condition at departure: improved. No learning barriers present. Discharge instructions provided and reviewed with the patient. Reviewed medication(s) side effects, precautions, dosing and course information. Prescription(s) given to the patient. Activity restrictions (rest) reviewed. Patient verbalized understanding. Written instructions provided in [place]. The patient was discharged by the physician. He was discharged home. He left the Emergency Department ambulatory and via private vehicle. Patient driving. --21:00 Chani Rhodes R.N. 20:56 02/07/17. BP: 129/91 (regular adult cuff) taken on the left arm. HR: 95 (irregular). RR: 25. O2 saturation: 96% on room air. Temp: 98.1 F (oral). Pain level now: 8/10. Additional comments: "all over from coughing". --21:00 Chani Rhodes R.N. Departure time: 21:Feb 07 2017. --21:04 Chani Rhodes R.N. Locked/Released at 02/07/2017 21:41 by Chani Rhodes R.N.
--- NOTE | 2017-02-08 09:39 | ED MAR SUMMARY ---
..... Medication Administration Record [facility] [address] [place] [address] Patient: CAMPOS WAN Visit ID: [id number] 66y, M Weight: 90.7 kg Height/Length: 70 in BMI: 28.7 ALLERGIES: LIsinopril Given 17:57 02/07/2017 Bruce Washington RSteven Medication Administered: SOLU-MEDROL [IVP] (METHYLPREDNISOLONE SODIUM SUCC), Dose: 80 mg IVP over 2 minute(s), Site: #1 right wrist. Medication Ordered: Solu-MEDROL IV 80 mg (NOW). Given 17:59 02/07/2017 Bruce Washington R.N. Medication Administered: ALBUTEROL [NEB TX], Dose: 2.5 mg Nebulizer Neb TX. Medication Ordered: Albuterol Neb Tx 2.5 mg (NOW, N). Start 19:38 02/07/2017 Adair Villaseñor R.N. Medication Administered: ROCEPHIN [IVPB] (CEFTRIAXONE SODIUM), Dose: 2 gm IVPB over 20 minute(s), Rate: 110 mL/hr, Dispensed: 50 mL bag, Site: #1 right wrist. Medication Ordered: Rocephin IV 2 gm/50mL (NOW). Given 20:38 02/07/2017 Gerson Sinha, Medication Administered: ALBUTEROL [NEB TX], Dose: 1 unit dose Nebulizer Neb TX. Medication Ordered: Albuterol Neb Tx 2.5 mg (NOW, N).
--- NOTE | 2017-02-08 09:39 | ED MAR SUMMARY ---
..... Medication Administration Record [facility] [address] [place] [address] Patient: CAMPOS WAN Visit ID: [id number] 66y, M Weight: 90.7 kg Height/Length: 70 in BMI: 28.7 ALLERGIES: LIsinopril Given 17:57 02/07/2017 Bruce Washington RSteven Medication Administered: SOLU-MEDROL [IVP] (METHYLPREDNISOLONE SODIUM SUCC), Dose: 80 mg IVP over 2 minute(s), Site: #1 right wrist. Medication Ordered: Solu-MEDROL IV 80 mg (NOW). Given 17:59 02/07/2017 Bruce Washington R.N. Medication Administered: ALBUTEROL [NEB TX], Dose: 2.5 mg Nebulizer Neb TX. Medication Ordered: Albuterol Neb Tx 2.5 mg (NOW, N). Start 19:38 02/07/2017 Adair Villaseñor R.N. Medication Administered: ROCEPHIN [IVPB] (CEFTRIAXONE SODIUM), Dose: 2 gm IVPB over 20 minute(s), Rate: 110 mL/hr, Dispensed: 50 mL bag, Site: #1 right wrist. Medication Ordered: Rocephin IV 2 gm/50mL (NOW). Given 20:38 02/07/2017 Gerson Sinha, Medication Administered: ALBUTEROL [NEB TX], Dose: 1 unit dose Nebulizer Neb TX. Medication Ordered: Albuterol Neb Tx 2.5 mg (NOW, N).
--- NOTE | 2017-02-08 09:39 | ED MED RECONCILIATION SUMMARY ---
Patient: CAMPOS WAN Medication Reconciliation Report [facility] VisitID: [id number] [address] [place] [address] 66y, M Registration Date/Time: 02/07/2017 Weight: 90.7 kg Height/Length: 70 in. BMI: 28.7 ALLERGIES: LIsinopril The patient's Home Medications are listed below: STOP TAKING THE FOLLOWING MEDICATIONS: Mometasone Furoate Inhalation (220 mcg/inh) 2 puffs, twice daily CONTINUE TAKING THE FOLLOWING MEDICATIONS: Albuterol Sulfate HFA Inhalation Albuterol Sulfate Inhalation 90 mcg, PRN AmLODIPine Besylate Oral (5 mg) 1 tablet, daily ASA Oral 81mg , daily Cholecalciferol Oral (1000 unit) 1 tablet Metoprolol Tartrate Oral (25 mg) 3 tabs, twice daily Nitroglycerin Sublingual 0.4 mg, PRN Omalizumab Subcutaneous 350 mg, once monthly Rosuvastatin Calcium Oral (40 mg), at bedtime Spironolactone Oral (50 mg), 2x a day SulfaSALAzine Oral (500 mg) 3 tabs, 2x a day Sulfazine Oral (500 mg) 3 tabs , 2 x daily The source(s) of the original Home Medication information: patient The following Medications were given to the patient in the Emergency Department: SOLU-MEDROL [IVP] IVP 80 mg, administered: 02/07/2017 5:57:00 PM Albuterol [Neb Tx] Neb TX 2.5 mg, administered: 02/07/2017 5:59:00 PM Rocephin [IVPB] IVPB bolus 0, then 2 gm 110 mL/hr, administered: 02/07/2017 7:38:00 PM Albuterol [Neb Tx] Neb TX 1 unit dose, administered: 02/07/2017 8:38:00 PM The following Medications were prescribed to the patient: Prednisone 20 mg: take 3 orally every day for 5 days. Dispense fifteen (15). No refills. -- Davion Jack MD Hydrocodone / APAP Liquid 7.5mg/325mg/15 mL: take ten (10) mL orally every 4 hours as needed. Dispense two hundred (200) mL. No refill.(for cough) -- Davion Jack MD Doxycycline 100 mg: Take 1 capsule orally every 12 hours for 10 days. No refill. -- Davion Jack MD
--- NOTE | 2017-02-08 09:39 | ED DISCHARGE INSTRUCTIONS ---
Patient: CAMPOS WAN General Instructions [facility] VisitID: [id number] [address] [place] [address] 66y, M Registration Date/Time: 02/07/2017 Mild persistent and intermittent asthma with an acute exacerbation. No status asthmaticus. Acute bacterial bronchitis. Acute bronchospasm New onset atrial fibrillation with controlled rate. INSTRUCTIONS No strenuous activity. Rest. Drink plenty of fluids. Warnings: Further evaluation is necessary. GENERAL WARNINGS: Return or contact your physician immediately if your condition worsens or changes unexpectedly, if not improving as expected, or if other problems arise. Your Current Medications: STOP TAKING THE FOLLOWING MEDICATIONS: Mometasone Furoate Inhalation : Aerosol Powder Breath Activated 220 mcg/inh, 2 puffs twice daily. CONTINUE TAKING THE FOLLOWING MEDICATIONS: Albuterol Sulfate HFA Inhalation. Albuterol Sulfate Inhalation : 90 mcg PRN. AmLODIPine Besylate Oral : Tablet 5 mg, 1 tablet daily. ASA Oral : 81mg daily. Cholecalciferol Oral : Tablet 1000 unit, 1 tablet. Metoprolol Tartrate Oral : Tablet 25 mg, 3 tabs twice daily. Nitroglycerin Sublingual : 0.4 mg PRN. Omalizumab Subcutaneous : 350 mg once monthly. Rosuvastatin Calcium Oral : Tablet 40 mg, at bedtime. Spironolactone Oral : Tablet 50 mg, 2x a day. SulfaSALAzine Oral : Tablet 500 mg, 3 tabs 2x a day. Sulfazine Oral : Tablet 500 mg, 3 tabs 2 x daily. Prescription Medications: Prednisone 20 mg: take 3 orally every day for 5 days. Dispense fifteen (15). No refills. Hydrocodone / APAP Liquid 7.5mg/325mg/15 mL: take ten (10) mL orally every 4 hours as needed. Dispense two hundred (200) mL. No refill. (for cough) Doxycycline 100 mg: Take 1 capsule orally every 12 hours for 10 days. No refill. Follow-up: Follow up with your doctor in two days. Call for the next available appointment. Reason for referral: because of new atrial fibrillation and cough. . Summary of care provided to patient. Understanding of the discharge instructions verbalized by patient. ADDITIONAL INFORMATION Asthma [Adult] Asthma is a disease where the small air passages within the lung go into spasm and restrict the flow of air. Inflammation and swelling of the airways cause further restriction. During an acute asthma attack, these factors cause difficulty breathing, wheezing, cough and chest tightness. An asthma attack can be triggered by many things. Common triggers include the common cold, bronchitis, pneumonia, irritants such as smoke or pullutants in the air, emotional upset and heavy exercise. Inmany adults with asthma, allergies todust, mold, pollen and animal dander can cause an asthma attack. Skipping doses of daily asthma medicine can also bring on an asthma attack. Asthma can be controlled with proper medicines and decreased exposure to known allergens. Home Care: Take prescribed medicine exactly at the times advised. If you have a hand-held inhaler or aerosol breathing medicine, do not use it more than once every four hours, unless told to do so. (If you need this medicine more than every four hours, you may need to return to the Emergency Room.) If prescribed an antibiotic or prednisone, take all of the medicine even if you are feeling better after a few days. Do not smoke. Avoid being exposed to the smoke of others. Some persons with asthma have worsening of their symptoms when they take aspirin and non-steroidal medicines like ibuprofen (Motrin, Advil) and naproxen (Aleve, Naprosyn). Talk to your doctor if you think this may apply to you. Acetaminophen (Tylenol)should be safe to use. Follow Up with your doctor, or as advised by our staff. Always bring all of your current medicines with you for your doctor to see. If you do not already have one, talk to your doctor about developing a personalized "Asthma Action Plan." [NOTE: A pneumococcal vaccine and yearly flu shot (every fall) are recommended. Ask your doctor about this.] Get Prompt Medical Attention if any of the following occur: Increased wheezing or shortness of breath Need to use your inhalers more often than usual without relief Fever of 100.4F (38C) or higher, or as directed by your healthcare provider Coughing up lots of dark-colored or bloody sputum (mucus) Chest pain with each breath You do not start to improve within 24 hours Call 911 If Any Of The Following Occur : Trouble walking or talking because of shortness of breath If you use a peak flow meter andyou are still in the red zone (less than 50 percent) 15 minutes after using inhaler medication Lips or fingernails turning davis or blue Bronchitis With Wheezing (Viral Or Bacterial: Adult) Bronchitis is an infection of the air passages. It often occurs during the common cold and is usually caused by a virus. Symptoms include cough with mucus (phlegm) and low-grade fever. If there is a lot of inflammation, air flow is restricted. The air passages may also go into spasm, especially if you are an asthmatic. This causes wheezing and difficulty breathing even in persons who do not have asthma. Bronchitis usually lasts 7-14 days. The wheezing should improve with treatment during the first week. An inhaler is often prescribed to relax the air passages and stop wheezing. Antibiotics will be prescribed if your doctor thinks there is also a secondary bacterial infection. Home Care: If symptoms are severe, rest at home for the first 2-3 days. When resuming activity, don't let yourself become overly tired. Do not smoke and avoid exposure to the smoke of others. You may use acetaminophen (Tylenol) or ibuprofen (Motrin, Advil) to control fever, unless another medicine was prescribed. [NOTE: If you have chronic liver or kidney disease or ever had a stomach ulcer or GI bleeding, talk with your doctor before using these medicines.] (Aspirin should never be used in anyone under 18 years of age who is ill with a fever. It may cause severe liver damage.) Your appetite may be poor so a light diet is fine. Avoid dehydration by drinking 6-8 glasses of fluids per day (water, soft, drinks, juices, tea, soup, etc.). Extra fluids will help loosen secretions in the lungs. Mkga-bas-ltmuowa cough medicines that containdextromethorphan(such as Robitussin DM) and decongestants (Actifed or Sudafed) may help relieve cough and congestion. [NOTE: Do not use decongestants if you have high blood pressure.] If you were given an inhaler, use it exactly as directed. If you need to use it more often than prescribed, your condition may be worsening. Contact your doctor or this facility. If prescribed, finish all antibiotic medicine, even if you are feeling better after only a few days. Follow Up With Your Doctor Or As Directed If You Are Not Starting To Feel Better After Three Days. [NOTE: If you are age 65 or older, or if you have chronic asthma or COPD, we recommend a pneumococcal vaccination every five years and a yearly influenza vaccination (flu shot) every . Ask your doctor about this. If you had an x-ray or EKG (electrocardiogram), it will be reviewed by a specialist. You will be notified of any new findings that may affect your care.] Get Prompt Medical Attention If Any Of The Following Occur: Increased wheezing, shortness of breath or pain with breathing Fever of 100.4F (38C) oral or higher, not better with fever medication Coughing up blood or increasing amounts of colored sputum Weakness, drowsiness, headache, facial pain, ear pain or a stiff neck Lower leg swelling, tenderness, redness or pain Bronchitis With Wheezing (Viral Or Bacterial: Adult) Bronchitis is an infection of the air passages. It often occurs during the common cold and is usually caused by a virus. Symptoms include cough with mucus (phlegm) and low-grade fever. If there is a lot of inflammation, air flow is restricted. The air passages may also go into spasm, especially if you are an asthmatic. This causes wheezing and difficulty breathing even in persons who do not have asthma. Bronchitis usually lasts 7-14 days. The wheezing should improve with treatment during the first week. An inhaler is often prescribed to relax the air passages and stop wheezing. Antibiotics will be prescribed if your doctor thinks there is also a secondary bacterial infection. Home Care: If symptoms are severe, rest at home for the first 2-3 days. When resuming activity, don't let yourself become overly tired. Do not smoke and avoid exposure to the smoke of others. You may use acetaminophen (Tylenol) or ibuprofen (Motrin, Advil) to control fever, unless another medicine was prescribed. [NOTE: If you have chronic liver or kidney disease or ever had a stomach ulcer or GI bleeding, talk with your doctor before using these medicines.] (Aspirin should never be used in anyone under 18 years of age who is ill with a fever. It may cause severe liver damage.) Your appetite may be poor so a light diet is fine. Avoid dehydration by drinking 6-8 glasses of fluids per day (water, soft, drinks, juices, tea, soup, etc.). Extra fluids will help loosen secretions in the lungs. Zpyc-pvd-ejnprek cough medicines that containdextromethorphan(such as Robitussin DM) and decongestants (Actifed or Sudafed) may help relieve cough and congestion. [NOTE: Do not use decongestants if you have high blood pressure.] If you were given an inhaler, use it exactly as directed. If you need to use it more often than prescribed, your condition may be worsening. Contact your doctor or this facility. If prescribed, finish all antibiotic medicine, even if you are feeling better after only a few days. Follow Up With Your Doctor Or As Directed If You Are Not Starting To Feel Better After Three Days. [NOTE: If you are age 65 or older, or if you have chronic asthma or COPD, we recommend a pneumococcal vaccination every five years and a yearly influenza vaccination (flu shot) every . Ask your doctor about this. If you had an x-ray or EKG (electrocardiogram), it will be reviewed by a specialist. You will be notified of any new findings that may affect your care.] Get Prompt Medical Attention If Any Of The Following Occur: Increased wheezing, shortness of breath or pain with breathing Fever of 100.4F (38C) oral or higher, not better with fever medication Coughing up blood or increasing amounts of colored sputum Weakness, drowsiness, headache, facial pain, ear pain or a stiff neck Lower leg swelling, tenderness, redness or pain Bronchitis With Wheezing (Viral Or Bacterial: Adult) Bronchitis is an infection of the air passages. It often occurs during the common cold and is usually caused by a virus. Symptoms include cough with mucus (phlegm) and low-grade fever. If there is a lot of inflammation, air flow is restricted. The air passages may also go into spasm, especially if you are an asthmatic. This causes wheezing and difficulty breathing even in persons who do not have asthma. Bronchitis usually lasts 7-14 days. The wheezing should improve with treatment during the first week. An inhaler is often prescribed to relax the air passages and stop wheezing. Antibiotics will be prescribed if your doctor thinks there is also a secondary bacterial infection. Home Care: If symptoms are severe, rest at home for the first 2-3 days. When resuming activity, don't let yourself become overly tired. Do not smoke and avoid exposure to the smoke of others. You may use acetaminophen (Tylenol) or ibuprofen (Motrin, Advil) to control fever, unless another medicine was prescribed. [NOTE: If you have chronic liver or kidney disease or ever had a stomach ulcer or GI bleeding, talk with your doctor before using these medicines.] (Aspirin should never be used in anyone under 18 years of age who is ill with a fever. It may cause severe liver damage.) Your appetite may be poor so a light diet is fine. Avoid dehydration by drinking 6-8 glasses of fluids per day (water, soft, drinks, juices, tea, soup, etc.). Extra fluids will help loosen secretions in the lungs. Molu-sus-gorrolp cough medicines that containdextromethorphan(such as Robitussin DM) and decongestants (Actifed or Sudafed) may help relieve cough and congestion. [NOTE: Do not use decongestants if you have high blood pressure.] If you were given an inhaler, use it exactly as directed. If you need to use it more often than prescribed, your condition may be worsening. Contact your doctor or this facility. If prescribed, finish all antibiotic medicine, even if you are feeling better after only a few days. Follow Up With Your Doctor Or As Directed If You Are Not Starting To Feel Better After Three Days. [NOTE: If you are age 65 or older, or if you have chronic asthma or COPD, we recommend a pneumococcal vaccination every five years and a yearly influenza vaccination (flu shot) every . Ask your doctor about this. If you had an x-ray or EKG (electrocardiogram), it will be reviewed by a specialist. You will be notified of any new findings that may affect your care.] Get Prompt Medical Attention If Any Of The Following Occur: Increased wheezing, shortness of breath or pain with breathing Fever of 100.4F (38C) oral or higher, not better with fever medication Coughing up blood or increasing amounts of colored sputum Weakness, drowsiness, headache, facial pain, ear pain or a stiff neck Lower leg swelling, tenderness, redness or pain Hydrocodone Bitartrate, Acetaminophen Oral solution What is this medicine? ACETAMINOPHEN; HYDROCODONE (a set a JET ale fen; freda droe KOE done) is a pain reliever. It is used to treat mild to moderate pain. How should I use this medicine? Take this medicine by mouth. Use a specially marked spoon or dropper to measure your dose. Ask your pharmacist if you do not have a dropper or measuring spoon. Do not use a household spoon. Follow the directions on the prescription label. If the medicine upsets your stomach, take it with food or milk. Do not take more medicine than you are told to take. Talk to your pole incisor operator regarding the use of this medicine in children. This medicine is not approved for use in children. What side effects may I notice from receiving this medicine? Side effects that you should report to your doctor or health health care legal assistant as soon as possible: allergic reactions like skin rash, itching or hives, swelling of the face, lips, or tongue breathing problems confusion feeling faint or lightheaded, falls stomach pain yellowing of the eyes or skin Side effects that usually do not require medical attention (report to your doctor or health health care legal assistant if they continue or are bothersome): nausea, vomiting stomach upset What may interact with this medicine? alcohol antihistamines isoniazid medicines for depression, anxiety, or psychotic disturbances medicines for sleep muscle relaxants naltrexone narcotic medicines (opiates) for pain phenobarbital ritonavir tramadol What if I miss a dose? If you miss a dose, take it as soon as you can. If it is almost time for your next dose, take only that dose. Do not take double or extra doses. Where should I keep my medicine? Keep out of the reach of children. This medicine can be abused. Keep your medicine in a safe place to protect it from theft. Do not share this medicine with anyone. Selling or giving away this medicine is dangerous and against the law. Store at room temperature between 20 and 25 degrees C (68 and 77 degrees F). Protect from light. Keep container tightly closed. Throw away any unused medicine after the expiration date. Discard unused medicine and used packaging carefully. Pets and children can be harmed if they find used or lost packages. What should I tell my health care provider before I take this medicine? They need to know if you have any of these conditions: brain tumor Crohn's disease, inflammatory bowel disease, or ulcerative colitis drink more than 3 alcohol-containing drinks per day drug abuse or addiction head injury heart or circulation problems kidney disease or problems going to the bathroom liver disease lung disease, asthma, or breathing problems an unusual or allergic reaction to acetaminophen, hydrocodone, other opioid analgesics, other medicines, foods, dyes, or preservatives or trying to get breast-feeding What should I watch for while using this medicine? Tell your doctor or health health care legal assistant if your pain does not go away, if it gets worse, or if you have new or a different type of pain. You may develop tolerance to the medicine. Tolerance means that you will need a higher dose of the medicine for pain relief. Tolerance is normal and is expected if you take this medicine for a long time. Do not suddenly stop taking your medicine because you may develop a severe reaction. Your body becomes used to the medicine. This does NOT mean you are addicted. Addiction is a behavior related to getting and using a drug for a non-medical reason. If you have pain, you have a medical reason to take pain medicine. Your doctor will tell you how much medicine to take. If your doctor wants you to stop the medicine, the dose will be slowly lowered over time to avoid any side effects. You may get drowsy or dizzy when you first start taking the medicine or change doses. Do not drive, use machinery, or do anything that may be dangerous until you know how the medicine affects you. Stand or sit up slowly. There are different types of narcotic medicines (opiates) for pain. If you take more than one type at the same time, you may have more side effects. Give your health care provider a list of all medicines you use. Your doctor will tell you how much medicine to take. Do not take more medicine than directed. Call emergency for help if you have problems breathing. The medicine will cause constipation. Try to have a bowel movement at least every 2 to 3 days. If you do not have a bowel movement for 3 days, call your doctor or health health care legal assistant. Too much acetaminophen can be very dangerous. Do not take Tylenol (acetaminophen) or medicines that contain acetaminophen with this medicine. Many non-prescription medicines contain acetaminophen. Always read the labels carefully. You have been given the following additional information: Asthma, Acute (Adult) Bronchitis With Wheezing (Adult) Bronchitis With Wheezing (Adult) Bronchitis With Wheezing (Adult) Hydrocodone Bitartrate, Acetaminophen Oral solution No strenuous activity. Rest. (Electronically signed by Davion Jack MD 02/08/2017 9:39)
--- NOTE | 2017-02-08 09:39 | ED MED RECONCILIATION SUMMARY ---
Patient: CAMPOS WAN Medication Reconciliation Report [facility] VisitID: [id number] [address] [place] [address] 66y, M Registration Date/Time: 02/07/2017 Weight: 90.7 kg Height/Length: 70 in. BMI: 28.7 ALLERGIES: LIsinopril The patient's Home Medications are listed below: STOP TAKING THE FOLLOWING MEDICATIONS: Mometasone Furoate Inhalation (220 mcg/inh) 2 puffs, twice daily CONTINUE TAKING THE FOLLOWING MEDICATIONS: Albuterol Sulfate HFA Inhalation Albuterol Sulfate Inhalation 90 mcg, PRN AmLODIPine Besylate Oral (5 mg) 1 tablet, daily ASA Oral 81mg , daily Cholecalciferol Oral (1000 unit) 1 tablet Metoprolol Tartrate Oral (25 mg) 3 tabs, twice daily Nitroglycerin Sublingual 0.4 mg, PRN Omalizumab Subcutaneous 350 mg, once monthly Rosuvastatin Calcium Oral (40 mg), at bedtime Spironolactone Oral (50 mg), 2x a day SulfaSALAzine Oral (500 mg) 3 tabs, 2x a day Sulfazine Oral (500 mg) 3 tabs , 2 x daily The source(s) of the original Home Medication information: patient The following Medications were given to the patient in the Emergency Department: SOLU-MEDROL [IVP] IVP 80 mg, administered: 02/07/2017 5:57:00 PM Albuterol [Neb Tx] Neb TX 2.5 mg, administered: 02/07/2017 5:59:00 PM Rocephin [IVPB] IVPB bolus 0, then 2 gm 110 mL/hr, administered: 02/07/2017 7:38:00 PM Albuterol [Neb Tx] Neb TX 1 unit dose, administered: 02/07/2017 8:38:00 PM The following Medications were prescribed to the patient: Prednisone 20 mg: take 3 orally every day for 5 days. Dispense fifteen (15). No refills. -- Davion Jack MD Hydrocodone / APAP Liquid 7.5mg/325mg/15 mL: take ten (10) mL orally every 4 hours as needed. Dispense two hundred (200) mL. No refill.(for cough) -- Davion Jack MD Doxycycline 100 mg: Take 1 capsule orally every 12 hours for 10 days. No refill. -- Davion Jack MD
== END 2017-02-07 21:04 | disposition home or self-care (01) ==
LOC: ED SRH 17:10
DX: J45.31 Mild persistent asthma with (acute) exacerbation (principal); J45.21 Mild intermittent asthma with (acute) exacerbation; J20.9 Acute bronchitis, unspecified; I48.91 Unspecified atrial fibrillation; I25.2 Old myocardial infarction; I13.10 Hypertensive heart and chronic kidney disease without heart failure, with stage 1 through stage 4 chronic kidney disease, or unspecified chronic kidney disease; E78.5 Hyperlipidemia, unspecified; N28.9 Disorder of kidney and ureter, unspecified; Z79.899 Other long term (current) drug therapy; Z88.8 Allergy status to other drugs, medicaments and biological substances
CPT/HCPCS: 90100; 90616; 90617; 91320; 92610; 92720; 95059

== ENCOUNTER 2017-02-15 10:34 | Emergency (ER) | payer OTHER ==
--- NOTE | 2017-02-15 11:34 | DIAGNOSTIC IMAGING REPORT ---
PROCEDURE: XR CHEST 1 VIEW INDICATION: COUGH TECHNIQUE: Portable AP view 11:23 a.m. COMPARISON: Chest 02/07/17 FINDINGS: Lungs are clear. Heart and mediastinum are normal. Thorax is normal. IMPRESSION: 1. Negative chest.
--- NOTE | 2017-02-15 13:32 | ED ORDER SUMMARY ---
..... Patient: CAMPOS WAN OrderSheet [facility] VisitID: [id number] [address] [place] [address] 66y, M Registration Date/Time: 02/15/2017 ORDER SHEET Weight: 90.7 kg (stated) Allergies: LIsinopril GENERAL ORDERS: Chest 1V Urgent (11:02/15/2017 Jefry Rose) (Ack 11:20 LMuller) (12:10 MWinterer R.N.) Addictions Recovery Specialist (Continuous) (cardiac arythmia) (11:02/15/2017 Jefry Rose) (11:19 MWinterer R.N.) CBC w Diff Urgent (11:02/15/2017 Jefry Rose) (Ack 11:20 LMuller) (11:46 MWinterer R.N.) CMP Urgent (11:02/15/2017 Jefry Rose) (Ack 11:20 LMuller) (11:46 MWinterer R.N.) UA-Culture if indicated Urgent (11:02/15/2017 Jefry Rose) (Ack 11:20 LMuller) (12:10 MWinterer R.N.) PT with INR Urgent (11:02/15/2017 Jefry Rose) (Ack 11:20 LMuller) (11:46 MWinterer R.N.) PTT Urgent (11:02/15/2017 Jefry Rose) (Ack 11:20 LMuller) (11:46 MWinterer R.N.) Troponin-I Urgent (11:02/15/2017 Jefry Rose) (Ack 11:20 LMuller) (11:46 MWinterer R.N.) D-Dimer Urgent (11:02/15/2017 Jefry Rose) (Ack 11:20 LMuller) (11:46 MWinterer R.N.) EKG - ER Stat (:02/15/2017 Jfery Rose) (Ack 11:20 LMuller) (11:53 ALawrence ER Tech1) Pulse oximeter (11:02/15/2017 Jefry Rose) (11:19 MWinterer R.N.) MEDICATION ORDERS: Phenergan-Codeine PO 10 mL (HIGH ALERT MEDICATION, NOW) (11:16 02/15/2017 Jefry Rose) (Ack 11:18 MWinterer R.N.) (11:27 MWinterer R.N.) IV FLUIDS: IV Saline Lock (11:16 02/15/2017 Jefry Rose) (Ack 11:18 MWinterer R.N.) (11:47 MWinterer R.N.) ORDER SHEET NOTES: [Electronically signed by Pedro Levin R.N. (13:47 02/15/2017)] [Electronically signed by Irving Galeana Dr. (05:33 02/20/2017)] [Electronically locked/signed by Pedro Levin R.N. (13:47 02/15/2017)]
--- NOTE | 2017-02-15 13:32 | ED CLINICAL REPORT ---
Clinical Report - Physicians/Mid Levels [facility] [address] [place] [address] 02/15/2017 10:34 Patient: CAMPOS WAN Time Seen: 1106. Arrived- By private vehicle. Historian- patient. HISTORY OF PRESENT ILLNESS Chief Complaint: PALPITATIONS. Modifying factors. Not worsened by anything. Not relieved by anything. It is described as a fast heart beat. This started past week and is still present (unchanged). It was abrupt in onset and has been intermittent but is not gone now. No chest pain or discomfort, difficulty breathing, sweating episodes or fainting episodes. No dizziness, tingling or muscle spasms. ( states he has a cough). 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 Similar symptoms previously: (a few times). Recent medical care: The patient was seen recently by a health care provider (recently diagnosed with a fib.). REVIEW OF SYSTEMS All systems otherwise negative, except as recorded above. PAST HISTORY See nurses notes. Medications: Apixaban Oral (Tablet 5 mg), 2 x daily. AmLODIPine Besylate Oral (Tablet 5 mg) 1 tablet, daily. Cholecalciferol Oral (Tablet 1000 unit) 1 tablet. Omalizumab Subcutaneous 350 mg, once monthly. Rosuvastatin Calcium Oral (Tablet 40 mg), at bedtime. Spironolactone Oral (Tablet 50 mg), 2x a day. Albuterol Sulfate HFA Inhalation. Allergies: LIsinopril. SOCIAL HISTORY Never smoker. No alcohol use or drug use. No recent travel. Is a local resident. ADDITIONAL NOTES The nursing notes have been reviewed. PHYSICAL EXAM Vital Signs: 02/15/2017 10:46 BP: 111/88. HR: 84. RR: 18. O2 saturation: 98%. Temp: 97.8 F. Pain level now: 7/10. Blood pressure normal. Oxygen saturation normal. Appearance: Alert. Oriented X3. No acute distress. Eyes: Pupils equal, round and reactive to light. Eyes normal inspection. ENT: Ears normal. Nose normal. Pharynx normal. Neck: Normal inspection. CVS: Abnormal rhythm. Heart sounds normal. Pulses normal. Respiratory: No respiratory distress. Breath sounds normal. Chest nontender. Abdomen: Soft and nontender. Bowel sounds normal. No organomegaly. No mass. Skin: Skin warm and dry. Normal skin color. No rash. Normal skin turgor. Extremities: Extremities exhibit normal ROM. No lower extremity edema. LABS, X-RAYS, AND EKG EKG: No acute ischemia. Atrial fibrillation (74). Normal P waves. Normal ALY. Normal QRS complex. Normal axis. Normal ST and T waves, QT and QTc. The study has been interpreted contemporaneously. The study has been independently viewed by me. The EKG appears to be a good tracing. Chest X-ray: (PROCEDURE: XR CHEST 1 VIEW INDICATION: COUGH TECHNIQUE: Portable AP view 11:23 a.m. COMPARISON: Chest 02/07/17 FINDINGS: Lungs are clear. Heart and mediastinum are normal. Thorax is normal. IMPRESSION: 1. Negative chest.). Laboratory Tests: UA-Culture if indicated: (GALDINO: 02/15/2017 12:00) ( [facility] 02/15/2017 12:56) Final results Test Result Flag Units (Reference) URINE COLOR YELLOW URINE APPEARANCE CLEAR URINE GLUCOSE NEGATIVE (NEGATIVE) URINE BILIRUBIN NEGATIVE (NEGATIVE) URINE KETONE NEGATIVE (NEGATIVE) URINE SPECIFIC GRAVITY 1.025 (1.010-1.030) URINE PH 6.0 (5.0-8.0) URINE PROTEIN NEGATIVE (NEGATIVE) URINE UROBILINOGEN 0.2 EU/dL (0.2-1.0) URINE NITRITE NEGATIVE (NEGATIVE) URINE BLOOD NEGATIVE (NEGATIVE) URINE LEUK ESTERASE NEGATIVE (NEGATIVE) URINE RBC NONE SEEN rbc/hpf (0-1) URINE WBC NONE SEEN wbc/hpf (0-1) URINE EPITHELIAL CELLS NONE SEEN EPI/hpf (0-5) URINE BACTERIA NONE SEEN (NONE SEEN) URINE COMMENT CULT NOT INDICATED URINE CULTURES ARE SET-UP BASED ON THE FOLLOWING CRITERIA:POSITIVE NITRITEPOSITIVE LEUKOCYTE ESTERASEGREATER THAN 10 WHITE BLOOD CELLSMODERATE (2+) OR GREATER BACTERIA CBC w Diff: (GALDINO: 02/15/2017 11:35) ( [facility] 02/15/2017 12:36) Final results Test Result Flag Units (Reference) WHITE BLOOD COUNT 9.4 K/uL (4.5-11.5) RED BLOOD COUNT 5.12 M/uL (4.50-5.90) HEMOGLOBIN 15.9 gm/dL (13.5-17.5) HEMATOCRIT 48.1 % (41.0-53.0) MEAN CELL VOLUME 94 fL (80-100) MEAN CORPUSCULAR HGB 31 pg (26-34) MEAN CORPUSCULAR HGB CONC 33 g/dL (31-37) RED CELL DISTRIBUTION WIDTH 14.2 % (11.6-14.8) PLATELET COUNT 212 K/uL (150-400) NEUTROPHIL % 76.2 H % (50-75) LYMPH % 12.8 L % (25-40) MONO % 6.1 % (3-14) EOSINOPHIL % 4.6 H % (0-4) BASOPHIL % 0.3 % (0-2) PT with INR: (GALDINO: 02/15/2017 11:35) ( MsgRcvd 02/15/2017 12:37) Final results Test Result Flag Units (Reference) INR 1.1 (0.8-1.2) Low Intensity Therapy: INR 1.5-2.0 PT range 18.5-23.1Mod.Intensity Therapy: INR 2.0-3.0 PT range 23.1-31.5High Intensity Therapy: INR 2.5-3.5 PT range 27.4-35.5High Intensity Therapy 2: INR 3.0-4.0 PT range 31.5-39.3 APTT 34 SECONDS (24-34) D-DIMER QUANTITATIVE 0.47 ug/mLFEU (0.27-0.52) The primary value of this quantitative assay relates toits negative predictive value (i.e. exclusion) of pulmonaryembolism/deep vein thrombosis/DIC.Elevated levels of d-dimer may also occur with:, age, cancer, inflammation, liver disease,post-op, infection, hematoma, coronary disease, peripheralarteriopathy, bleeding disorders and thrombolytic treatment.Results should be correlated with other clinical andradiological data.Testing Methodology: Latex Immunoassay CMP: (GALDINO: 02/15/2017 11:35) ( MsgRcvd 02/15/2017 12:56) Final results Test Result Flag Units (Reference) GLUCOSE 119 H mg/dL (70-110) BUN 28 H mg/dL (7-18) CREATININE 1.7 H mg/dL (0.6-1.3) Estimated GFR 42.94 mL/min Estimated GFR- 52.04 mL/min Note: Persistent reduction over 3 months in eGFR<60 mL/min/1.73 m2 defines CKD. Patients with eGFR values>=60 mL/min/1.73 m2 may also have CKD if evidence ofpersistent proteinuria. Additional information may be foundat www.kidney.org. SODIUM 140 mmol/L (136-145) POTASSIUM 4.2 mmol/L (3.5-5.1) CHLORIDE 108 H mmol/L (98-107) CARBON DIOXIDE 18 L mmol/L (21-32) CALCIUM 9.0 mg/dL (8.5-10.1) TOTAL PROTEIN 6.9 g/dL (6.4-8.2) ALBUMIN 3.4 g/dL (3.3-5.0) BILIRUBIN, TOTAL 0.8 mg/dL (0.0-1.0) ALKALINE PHOSPHATASE 90 U/L (46-116) AST (SGOT) 26 U/L (15-37) ALT (SGPT) 50 U/L (12-78) TROPONIN I <0.05 ng/mL (0.00-1.5) TROPONIN REFERENCE RANGE:<0.1 NEGATIVE0.1-1.5 INDETERMINANT>1.5 POSITIVE . PROGRESS AND PROCEDURES Course of Care: The patient is a pleasant 66-year-old male presented for evaluation of palpitations and cough. Patient has been recently diagnosed with atrial fibrillation. Patient is currently rate controlled. Patient likely has cough secondary to atrial fibrillation irritating his respiratory tract. Patient however will be evaluated for other etiologies for the patient's cough as well as the chest pain. Patient is agreeable to treatment plan. Patient will be find with EKG, chest x-ray, laboratory studies. We'll also be evaluating the patient for pulmonary embolism. Patient will be evaluated with a d-dimer. Patient agreeable to the treatment plan. Patient workup was noted for the findings above. Patient without any acute Abnormalities. D-dimer is noted to be negative. Troponin is also noted be negative. Because the patient's negative workup here in the emergency Department in improved symptoms while here in the emergency department, do not feel patient needs to be admitted to the hospital require further emergency department workup/evaluation. Patient will be encouraged to follow up with his program assistant. Medications for symptom control have been provided. Do not fill patient is being admitted to the hospital require further emergency department workup/evaluation. Patient appears to be reliable and is a stable outpatient candidate. Disposition: Discharged. Condition: good. CLINICAL IMPRESSION Chronic atrial fibrillation with controlled rate. The patient is prescribed warfarin or another FDA approved anticoagulant. chronic kidney disease not on dialysis acute cough secondary to a fib. INSTRUCTIONS Warnings: GENERAL WARNINGS: Return or contact your physician immediately if your condition worsens or changes unexpectedly, if not improving as expected, or if other problems arise. SPECIFICALLY, return if you develop chest, neck, jaw, shoulder, arm, or back pain, difficulty breathing, a fluttering sensation in your chest, lightheadedness, fainting, excessive fatigue, or sudden sweating. Your Current Medications: CONTINUE TAKING THE FOLLOWING MEDICATIONS: Albuterol Sulfate HFA Inhalation. AmLODIPine Besylate Oral : Tablet 5 mg, 1 tablet daily. Apixaban Oral : Tablet 5 mg, 2 x daily. Cholecalciferol Oral : Tablet 1000 unit, 1 tablet. Omalizumab Subcutaneous : 350 mg once monthly. Rosuvastatin Calcium Oral : Tablet 40 mg, at bedtime. Spironolactone Oral : Tablet 50 mg, 2x a day. Prescription Medications: Phenergan w/ Codeine 10mg / 6.25mg per 5 mL: take 1-2 teaspoons every 6 hours as needed for pain or cough. Dispense sixty (60) mL. No refill. Substitution is permissible. Follow-up: Return to the emergency department as needed. Follow up with your doctor in three days. Reason for referral: recheck today's concerns. Summary of care provided to patient via paper. Screening today revealed the patient's blood pressure to be in the normal range. The patient should follow up with a primary care provider for blood pressure management. Understanding of the discharge instructions verbalized by patient. (Electronically signed by Irving Galeana Dr. 02/20/2017 5:33)
--- NOTE | 2017-02-15 13:32 | ED ORDER SUMMARY ---
..... Patient: CAMPOS WAN OrderSheet [facility] VisitID: [id number] [address] [place] [address] 66y, M Registration Date/Time: 02/15/2017 ORDER SHEET Weight: 90.7 kg (stated) Allergies: LIsinopril GENERAL ORDERS: Chest 1V Urgent (11:02/15/2017 Jefry Rose) (Ack 11:20 LMuller) (12:10 MWinterer R.N.) Loan Officer (Continuous) (cardiac arythmia) (11:02/15/2017 Jefry Rose) (11:19 MWinterer R.N.) CBC w Diff Urgent (11:02/15/2017 Jefry Rose) (Ack 11:20 LMuller) (11:46 MWinterer R.N.) CMP Urgent (11:02/15/2017 Jefry Rose) (Ack 11:20 LMuller) (11:46 MWinterer R.N.) UA-Culture if indicated Urgent (11:02/15/2017 Jefry Rose) (Ack 11:20 LMuller) (12:10 MWinterer R.N.) PT with INR Urgent (11:02/15/2017 Jefry Rose) (Ack 11:20 LMuller) (11:46 MWinterer R.N.) PTT Urgent (11:02/15/2017 Jefry Rose) (Ack 11:20 LMuller) (11:46 MWinterer R.N.) Troponin-I Urgent (11:02/15/2017 Jefry Rose) (Ack 11:20 LMuller) (11:46 MWinterer R.N.) D-Dimer Urgent (11:02/15/2017 Jefry Rose) (Ack 11:20 LMuller) (11:46 MWinterer R.N.) EKG - ER Stat (:02/15/2017 Jefry Rose) (Ack 11:20 LMuller) (11:53 ALawrence ER Tech1) Pulse oximeter (11:02/15/2017 Jefry Rose) (11:19 MWinterer R.N.) MEDICATION ORDERS: Phenergan-Codeine PO 10 mL (HIGH ALERT MEDICATION, NOW) (11:16 02/15/2017 Jefry Rose) (Ack 11:18 MWinterer R.N.) (11:27 MWinterer R.N.) IV FLUIDS: IV Saline Lock (11:16 02/15/2017 Jefry Rose) (Ack 11:18 MWinterer R.N.) (11:47 MWinterer R.N.) ORDER SHEET NOTES: [Electronically signed by Pedro Levin R.N. (13:47 02/15/2017)] [Electronically signed by Irving Galeana Dr. (05:33 02/20/2017)] [Electronically locked/signed by Pedro Levin R.N. (13:47 02/15/2017)]
--- NOTE | 2017-02-15 13:32 | ED NURSING NOTES ---
Clinical Report - Nurses [facility] [place] [address] 02/15/2017 10:34 Patient: CAMPOS WAN TRIAGE Acuity: LEVEL 3. Chief Complaint: COUGH. Alert. No acute distress. SEPSIS SCREEN: Sepsis Screen. Negative (no infection suspected/documented). --10:52 Ophelia Wyatt R.N. 10:46 02/15/17. BP: 111/88. HR: 84. RR: 18. O2 saturation: 98% on room air. Temp: 97.8 F (oral). Pain level now: 04/05. --10:52 Ophelia Wyatt R.N. Weight: 90.7 kg stated. Height/Length: 69 inches Per Patient. BMI: 29.5. --10:50 Ophelia Wyatt R.N. Medications Albuterol Sulfate HFA Inhalation. --10:47 Ophelia Wyatt R.N. AmLODIPine Besylate Oral (Tablet 5 mg) 1 tablet, daily. Cholecalciferol Oral (Tablet 1000 unit) 1 tablet. Omalizumab Subcutaneous 350 mg, once monthly. Rosuvastatin Calcium Oral (Tablet 40 mg), at bedtime. Spironolactone Oral (Tablet 50 mg), 2x a day. --10:48 Ophelia Wyatt R.N. Apixaban Oral (Tablet 5 mg), 2 x daily. --10:49 Ophelia Wyatt R.N. Medication/allergy information source: the patient. --10:52 Ophelia Wyatt R.N. Allergies LIsinopril. --10:49 Ophelia Wyatt R.N. History Arrived by private vehicle. Historian: patient. Unaccompanied. Primary physician ([facility]). Onset. (1 weeks ago). 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 SOCIAL HX: Never smoker. Regular alcohol use. No drug use. FALL RISK ASSESSMENT: Fall risk assessment completed. No fall risk identified. NUTRITIONAL RISK ASSESSMENT: The nutritional risk assessment revealed no deficiencies. FUNCTIONAL ASSESSMENT: Functional assessment: no impairments noted. LEARNING NEEDS ASSESSMENT: The learning needs assessment revealed no barriers. SKIN INTEGRITY ASSESSMENT: Skin integrity risk assessment completed. No skin integrity risk identified. --10:52 Ophelia Wyatt R.N. PROBLEMS: Asthma. Bronchospasm. Bronchitis. Gastroesophageal Reflux. Pericarditis. Angina. Coronary Artery Disease. Hyperlipidemia. Angioedema. Immunizations. Cancer. Hypertension. Hypercholesterolemia. Myocardial Infarction. --10:49 Ophelia Wyatt R.N. ADDITIONAL SURGERIES: Right testicle removed . Surgery on 3rd and 4th digits right hand . Tonsillectomy. --10:49 Ophelia Wyatt R.N. Assessment GENERAL / NEURO / PSYCH: Alert. Oriented X 4. Appears in no acute distress. Timothy Coma Scale: 15- eyes open spontaneously (4); best verbal response- oriented x 4 (5); best motor response- obeys commands (6). Patient appears calm and cooperative. RESPIRATORY: Respirations not labored. CVS: Capillary refill less than 2 seconds. GI / : Abdomen soft and nontender. SKIN: Mucous membranes are pink. Skin is warm and dry. --10:52 Ophelia Wyatt R.N. Interventions ID band on patient. To treatment room. --10:52 Ophelia Wyatt R.N. PHYSICAL ASSESSMENT Ambulatory to room. GENERAL / NEURO / PSYCH: Alert. Oriented X 4. Appears in no acute distress. HEENT: Pupils equal, round and reactive to light. Voice within normal limits. Mucous membranes are pink. RESPIRATORY: Respirations not labored. Cough productive of scant amounts of thin sputum. CVS: Capillary refill less than 2 seconds. SKIN: Skin is warm and dry. Normal skin turgor. --10:53 Ophelia Wyatt R.N. NURSING PROGRESS NOTES 10:53 02/15/17. Patient gowned. Two patient identifiers checked. Call light placed in reach. Side rails up x 1. Bed placed in lowest position. Brakes of bed on. Patient ready for evaluation- chart flagged and ED physician notified. --10:53 Ophelia Wyatt R.N. 11:27 02/15/2017 PHENERGAN-CODEINE (Promethazine-Codeine) PO 10 mL given. Allergies verified and confirmed 5 rights. --11:27 Ophelia Wyatt R.N. 11:46 02/15/2017 Site #1 started via IV in the right forearm with an 22g angiocath, with aseptic technique and good blood return; two attempts. Blood drawn: rainbow set. Labeled in the presence of the patient and sent to the lab. Saline lock flushed with 10 mL saline. --11:46 Ophelia Wyatt R.N. EKG time: (1153). EKG was performed by a tech and shown to the ED physician. --11:54 Georgie Sanchez, CELESTE Tech1 Checked patient name and birthdate: patient confirmed urine collected with return of yellow-colored clear urine; sample sent to lab for urinalysis. Specimen labeled in the presence of the patient. --12:11 Ophelia Wyatt R.N. DISPOSITION / DISCHARGE 13:40 02/15/2017 Site #1 removed upon discharge. Catheter intact. --13:40 Pedro Levin R.N. 13:42 02/15/17. Cardiac rhythm: normal sinus rhythm. Condition at departure: improved. The goals identified in the patient's plan of care were met. No learning barriers present. Discharge instructions provided and reviewed with the patient. Reviewed warnings. Reviewed medication(s). Treatments reviewed. Patient verbalized understanding. Written instructions provided in Pashto. The patient was discharged by the physician. He was discharged home. He left the Emergency Department ambulatory and via private vehicle. Family member driving. FALL RISK ASSESSMENT: Fall risk assessment completed. No fall risk identified. --13:42 Pedro Levin R.N. 13:40 02/15/17. BP: 125/84. HR: 87. RR: 18. O2 saturation: 98% on room air. Temp: 98.2 F (oral). Pain level now: 5/10. Additional comments: Pain is only while coughing. --13:42 Pedro Levin R.N. 13:45 02/15/17. Departure time: 13:45. --13:45 Pedro Levin R.N. Locked/Released at 02/15/2017 13:47 by Pedro Levin R.N.
--- NOTE | 2017-02-20 05:34 | ED MED RECONCILIATION SUMMARY ---
Patient: CAMPOS WAN Medication Reconciliation Report [facility] VisitID: [id number] [address] [place] [address] 66y, M Registration Date/Time: 02/15/2017 Weight: 90.7 kg Height/Length: 69 in. BMI: 29.5 ALLERGIES: LIsinopril The patient's Home Medications are listed below: CONTINUE TAKING THE FOLLOWING MEDICATIONS: Albuterol Sulfate HFA Inhalation AmLODIPine Besylate Oral (5 mg) 1 tablet, daily Apixaban Oral (5 mg), 2 x daily Cholecalciferol Oral (1000 unit) 1 tablet Omalizumab Subcutaneous 350 mg, once monthly Rosuvastatin Calcium Oral (40 mg), at bedtime Spironolactone Oral (50 mg), 2x a day The source(s) of the original Home Medication information: patient The following Medications were given to the patient in the Emergency Department: PHENERGAN-CODEINE [PO] PO 10 mL, administered: 02/15/2017 11:27:00 AM The following Medications were prescribed to the patient: Phenergan w/ Codeine 10mg / 6.25mg per 5 mL: take 1-2 teaspoons every 6 hours as needed for pain or cough. Dispense sixty (60) mL. No refill. Substitution is permissible. -- Irving Galeana Dr.
--- NOTE | 2017-02-20 05:34 | ED DISCHARGE INSTRUCTIONS ---
Patient: CAMPOS WAN General Instructions [facility] VisitID: [id number] [place] [address] 66y, M Registration Date/Time: 02/15/2017 Chronic atrial fibrillation with controlled rate. The patient is prescribed warfarin or another FDA approved anticoagulant. chronic kidney disease not on dialysis acute cough secondary to a fib. INSTRUCTIONS Warnings: GENERAL WARNINGS: Return or contact your physician immediately if your condition worsens or changes unexpectedly, if not improving as expected, or if other problems arise. SPECIFICALLY, return if you develop chest, neck, jaw, shoulder, arm, or back pain, difficulty breathing, a fluttering sensation in your chest, lightheadedness, fainting, excessive fatigue, or sudden sweating. Your Current Medications: CONTINUE TAKING THE FOLLOWING MEDICATIONS: Albuterol Sulfate HFA Inhalation. AmLODIPine Besylate Oral : Tablet 5 mg, 1 tablet daily. Apixaban Oral : Tablet 5 mg, 2 x daily. Cholecalciferol Oral : Tablet 1000 unit, 1 tablet. Omalizumab Subcutaneous : 350 mg once monthly. Rosuvastatin Calcium Oral : Tablet 40 mg, at bedtime. Spironolactone Oral : Tablet 50 mg, 2x a day. Prescription Medications: Phenergan w/ Codeine 10mg / 6.25mg per 5 mL: take 1-2 teaspoons every 6 hours as needed for pain or cough. Dispense sixty (60) mL. No refill. Substitution is permissible. Follow-up: Return to the emergency department as needed. Follow up with your doctor in three days. Reason for referral: recheck today's concerns. Summary of care provided to patient via paper. Screening today revealed the patient's blood pressure to be in the normal range. The patient should follow up with a primary care provider for blood pressure management. Understanding of the discharge instructions verbalized by patient. ADDITIONAL INFORMATION Arrhythmia Electrical impulses cause the normal heart to beat 60 to 100 times a minute. These impulses come from a natural pacemaker deep inside the heart muscle. Each impulse causes the heart muscle to contract. This causes the blood to flow through the heart and out to the tissues and organs of your body. An arrhythmia is a change from the normal speed or pattern of these electrical impulses. This can cause the heart to beat too fast (tachycardia); or too slow (bradycardia); or in an unsteady pattern (irregular rhythm). Symptoms of arrhythmias Different people experience arrhythmias differently. Sometimes they may not have symptoms, but just notice a change in their pulse. Symptoms can include: Fluttering feeling in the chest Shortness of breath Chest pain or pressure Lightheadedness or dizziness Fainting or nearly fainting Palpitations Tiredness, fatigue, or weakness Causes of arrhythmias Arrhythmias are most often due to heart disease such as: Coronary artery disease (arteriosclerosis) Disease of the heart valves Enlarged heart High blood pressure Heart failure Other causes ofarrhythmia include: Certain medicines (such as asthma inhalers and decongestants) Some herbal supplements Cardiac stimulant drugs (such as cocaine, amphetamine, diet pills, certain decongestant cold medicines, caffeine, and nicotine) Excessive alcohol use Medical conditions such as thyroid disease, anemia, anxiety, and panic disorder Arrythmias can often be prevented. The cause and type of arrhythmia determines the best treatment. Sometimes your doctor may want to monitor your heart rate over a 24-hour period or longer. This can help identify the cause of your arrhythmia and find the best treatment. This can be done with a Holter monitor,a portable EKG recording device attached by wires to your chest. You can carry this with you as you perform your routine activities during the monitoring period. Home care Avoid cardiac stimulants (such as cocaine, amphetamine, diet pills, certain decongestant cold medicines, caffeine, and nicotine). If you smoke, stop smoking. Contact your doctor or a local stop-smoking program for help. Tell your doctor about any prescription, [id number] or herbal medicines you take. These may be affecting your heart rhythm. Follow-up care Follow up with your health care provider or as advised by our staff. If a Holter monitor has been recommended, contact the cardiologistyou have been referred toas soon as you canpick up the device. Other outpatient tests may also be arranged for you at that time. Call 911 This is the fastest and safest way to get to the emergency department. The paramedics can also start treatment on the way to the hospital, if needed. Don'twait until your symptoms are severe to call 911. Other reasons to call 911 besides chest pain include: Chest, shoulder, arm, neck, or back pain Shortness of breath Feeling lightheaded, faint, or dizzy Rapid heart beat Slower than usual heart rate compared to your normal Angina withweakness, dizziness, fainting, heavy sweating, nausea, or vomiting Extreme drowsiness, or confusion Weakness of an arm or leg or one side of the face Difficulty with speech or vision When to seek medical care Remember, things are not always like they are on TV. Sometimes it is not so obvious. You may only feel weak or just "not right." If it is not clear or if you have any doubt, call for advice. Seek help for chest pain, or it feels different from usual, even if your symptoms are mild. Do not drive yourself. Have someone else drive. If no one can drive you, call 911. If your doctor has given you medicines to take when you have symptoms, take them, but do not delay getting help while trying to find them. Do not delay. Fast diagnosis and treatment can prevent or limit the amount of heart damage during a heart attack or stroke. Do not go to your doctor's ofice or a clinic because they will not be able to provide all of the testing or treatment required for this condition. You have been given the following additional information: Arrhythmia, Unspecified (Electronically signed by Irving Galeana Dr. 02/20/2017 5:33)
--- NOTE | 2017-02-20 05:34 | ED MAR SUMMARY ---
..... Medication Administration Record [facility] [address] [place] [place] [address] Patient: CAMPOS WAN Visit ID: [id number] 66y, M Weight: 90.7 kg Height/Length: 69 in BMI: 29.5 ALLERGIES: LIsinopril Given 11:27 02/15/2017 Ophelia Wyatt R.N. Medication Administered: PHENERGAN-CODEINE [PO] (PROMETHAZINE-CODEINE), Dose: 10 mL PO. Medication Ordered: Phenergan-Codeine PO 10 mL (HIGH ALERT MEDICATION, NOW).
--- NOTE | 2017-02-20 05:34 | ED MED RECONCILIATION SUMMARY ---
Patient: CAMPOS WAN Medication Reconciliation Report [facility] VisitID: [id number] [address] [place] [address] 66y, M Registration Date/Time: 02/15/2017 Weight: 90.7 kg Height/Length: 69 in. BMI: 29.5 ALLERGIES: LIsinopril The patient's Home Medications are listed below: CONTINUE TAKING THE FOLLOWING MEDICATIONS: Albuterol Sulfate HFA Inhalation AmLODIPine Besylate Oral (5 mg) 1 tablet, daily Apixaban Oral (5 mg), 2 x daily Cholecalciferol Oral (1000 unit) 1 tablet Omalizumab Subcutaneous 350 mg, once monthly Rosuvastatin Calcium Oral (40 mg), at bedtime Spironolactone Oral (50 mg), 2x a day The source(s) of the original Home Medication information: patient The following Medications were given to the patient in the Emergency Department: PHENERGAN-CODEINE [PO] PO 10 mL, administered: 02/15/2017 11:27:00 AM The following Medications were prescribed to the patient: Phenergan w/ Codeine 10mg / 6.25mg per 5 mL: take 1-2 teaspoons every 6 hours as needed for pain or cough. Dispense sixty (60) mL. No refill. Substitution is permissible. -- Irving Galeana Dr.
--- NOTE | 2017-02-20 05:34 | ED MAR SUMMARY ---
..... Medication Administration Record [facility] [address] [place] [address] Patient: CAMPOS WAN Visit ID: [id number] 66y, M Weight: 90.7 kg Height/Length: 69 in BMI: 29.5 ALLERGIES: LIsinopril Given 11:27 02/15/2017 Ophelia Wyatt R.N. Medication Administered: PHENERGAN-CODEINE [PO] (PROMETHAZINE-CODEINE), Dose: 10 mL PO. Medication Ordered: Phenergan-Codeine PO 10 mL (HIGH ALERT MEDICATION, NOW).
== END 2017-02-15 13:45 | disposition home or self-care (01) ==
LOC: ED SRH 10:34
DX: I48.2 Chronic atrial fibrillation (principal); I12.9 Hypertensive chronic kidney disease with stage 1 through stage 4 chronic kidney disease, or unspecified chronic kidney disease; N18.9 Chronic kidney disease, unspecified; R05 Cough; Z79.01 Long term (current) use of anticoagulants; E78.00 Pure hypercholesterolemia, unspecified; E78.5 Hyperlipidemia, unspecified; K21.9 Gastro-esophageal reflux disease without esophagitis; J45.909 Unspecified asthma, uncomplicated; I25.2 Old myocardial infarction; Z79.899 Other long term (current) drug therapy
CPT/HCPCS: 90004; 90100; 90616; 91556; 94001; 94060; 95059

== ENCOUNTER 2017-03-18 12:44 | Emergency (ER) | payer OTHER ==
--- NOTE | 2017-03-18 15:13 | DIAGNOSTIC IMAGING REPORT ---
PROCEDURE: XR CHEST 2 VIEW INDICATION: COUGH TECHNIQUE: PA and lateral view. COMPARISON: Chest x-ray 02/15/2017, 02/07/2017 and 04/06/2016. FINDINGS: Lungs are clear. Cardiovascular structures are normal. Stable small ovoid density in the left lung base medially, likely a small hiatal hernia. Mild lordosis of the mid to distal thoracic spine and degenerative changes. IMPRESSION: 1. No acute changes 2. Stable medial left basilar opacity suggestive of a hiatal hernia.
--- NOTE | 2017-03-18 17:25 | ED ORDER SUMMARY ---
..... Patient: CAMPOS WAN OrderSheet [facility] VisitID: [id number] [place] [address] 66y, M Registration Date/Time: 03/18/2017 ORDER SHEET Weight: 91.6 kg (stated) Allergies: LIsinopril GENERAL ORDERS: Chest 2V Urgent (13:41 03/18/2017 Bakari URENA) (Ack 13:44 DILMAoeroniel) (14:01 PAZnebel R.N.) Cardiac Panel Stat (13:42 03/18/2017 Bakari URENA) (13:43 PAZnebel R.N.) (Ack 13:44 DILMAoenatalya) BNP Urgent (13:42 03/18/2017 Bakari URENA) (13:43 Haydebel R.N.) (Ack 13:44 Jamil) Immigration Investigator (Continuous) (13:42 03/18/2017 Bakari URENA) (13:43 Maryjo R.N.) Pulse oximeter (13:42 03/18/2017 Bakari URENA) (13:43 Haydebel R.N.) EKG - ER Stat (13:42 03/18/2017 Bakari URENA) (13:43 PAZneray R.N.) (13:46 Jamil) MEDICATION ORDERS: DuoNeb Neb Tx 1 unit dose (NOW) (13:42 03/18/2017 Bakari URENA) (15:18 JZiglar) IV FLUIDS: IV NS : initial bolus 1000 mL (1000 mL/hr), then none - (NOW) (13:41 03/18/2017 Bakari URENA) (14:01 PAZneray R.N.) Solu-MEDROL IV 125 mg (NOW) (13:41 03/18/2017 Bakari URENA) (14:01 PAZnebel R.N.) ORDER SHEET NOTES: [Electronically signed by Bruce Washington R.N. (17:45 03/18/2017)] [Electronically signed by Jessie Montano MD (21:02 03/18/2017)] [Electronically locked/signed by Bruce Washington R.N. (17:45 03/18/2017)]
--- NOTE | 2017-03-18 17:25 | ED CLINICAL REPORT ---
Clinical Report - Physicians/[facility] [address] [place] [address] 03/18/2017 12:47 [id number] Time Seen: 12:52. Arrived- By private vehicle. Historian- patient. HISTORY OF PRESENT ILLNESS Chief Complaint: COUGH. This started about 6 weeks ago and is still present but is improving. The illness is described as moderate. The patient has had a cough. No sputum production, difficulty breathing, chest discomfort or pain or fever. No muscle aches, chills, sore throat or hoarseness. No nasal congestion or discharge, sinus pressure, sinus drainage or ear pain. Additional history - No known contact with a sick individual. (Patient states that he was diagnosed with bronchitis at the beginning of this illness. He states he was placed on multiple meds by multiple doctors, with no measurable relief with any of the medications. 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 Patient states that he no longer has a productive cough, and that he feels as though the cough is actually improving little by little. However, he states that usually his respiratory illnesses do not last this long, and he does not know why he is still having these coughing fits. He states he was started on an albuterol inhaler, but that this does not seem to help either. Patient has no history of smoking.). Similar symptoms previously: Milder. Recent medical care: The patient was seen recently at another facility. REVIEW OF SYSTEMS The patient has had a headache (From coughing, patient states.). No eye discomfort, nausea, vomiting, diarrhea or abdominal pain. No hay fever, pedal edema, calf pain, difficulty with urination or skin rash. No enlarged lymph nodes or joint pain. All systems otherwise negative, except as recorded above. PAST HISTORY Problems: Atrial Fibrillation. Asthma. Bronchospasm. Gastroesophageal Reflux. Pericarditis. Angina. Coronary Artery Disease. Hyperlipidemia. Angioedema. Immunizations. Cancer. Hypertension. Hypercholesterolemia. Myocardial Infarction. Additional Surgeries: Right testicle removed . Surgery on and 4th digits right hand . Tonsillectomy. Medications: Albuterol Sulfate HFA Inhalation. AmLODIPine Besylate Oral (Tablet 5 mg) 1 tablet, daily. Apixaban Oral (Tablet 5 mg), 2 x daily. Cholecalciferol Oral (Tablet 1000 unit) 1 tablet. Omalizumab Subcutaneous 350 mg, once monthly. Rosuvastatin Calcium Oral (Tablet 40 mg), at bedtime. Spironolactone Oral (Tablet 50 mg), 2x a day. Allergies: LIsinopril. SOCIAL HISTORY Never smoker. No alcohol use or drug use. ADDITIONAL NOTES The nursing notes have been reviewed. PHYSICAL EXAM Vital Signs: 03/18/2017 12:51 BP: 114/89. HR: 80. RR: 20. O2 saturation: 96%. Temp: 97.8 F. Pain level now: 8. Have been reviewed. Appearance: Alert. No acute distress. Eyes: Pupils equal, round and reactive to light. Eyes normal inspection. ENT: Nose normal. Neck: Normal inspection. CVS: Normal heart rate and rhythm. Heart sounds normal. Pulses normal. Respiratory: No respiratory distress. Expiratory mild bilateral wheezes diffusely (Patient also has fits of dry cough.). Abdomen: Soft and nontender. Back: Normal inspection. Skin: Skin warm and dry. Normal skin color. No rash. Normal skin turgor. Extremities: Extremities exhibit normal ROM. No lower extremity edema. Neuro: (grossly intact.). LABS, X-RAYS, AND EKG EKG: EKG time: (1256). Rate: 83. Atrial fibrillation. Abnormal P waves. Rhythm Strip #1: Atrial fibrillation. Narrow QRS complexes. Irregularly irregular rhythm. No ectopy. Conduction normal. Normal ST segments and T waves. The study was interpreted by me. Chest X-ray: No acute disease. Normal lung markings present. Normal heart size. Mediastinum normal. Great vessels normal. Soft tissues normal. No infiltrate. No fracture. No bony lesion present. Views: PA and lateral. Technique: good. The X-rays were independently viewed by me, interpreted by the radiologist and contemporaneously by me and discussed with the radiologist. A comparison with prior films reveals that the findings are unchanged. Laboratory Tests: CBC w Diff: (GALDINO: 03/18/2017 13:10) ( MsgRcvd 03/18/2017 13:46) Final results Test Result Flag Units (Reference) WHITE BLOOD COUNT 6.9 K/uL (4.5-11.5) RED BLOOD COUNT 4.95 M/uL (4.50-5.90) HEMOGLOBIN 15.3 gm/dL (13.5-17.5) HEMATOCRIT 45.7 % (41.0-53.0) MEAN CELL VOLUME 92 fL (80-100) MEAN CORPUSCULAR HGB 31 pg (26-34) MEAN CORPUSCULAR HGB CONC 34 g/dL (31-37) RED CELL DISTRIBUTION WIDTH 13.4 % (11.6-14.8) PLATELET COUNT 200 K/uL (150-400) NEUTROPHIL % 61.6 % (50-75) LYMPH % 21.7 L % (25-40) MONO % 9.0 % (3-14) EOSINOPHIL % 7.4 H % (0-4) BASOPHIL % 0.3 % (0-2) BNP: (GALDINO: 03/18/2017 13:10) ( [facility] 03/18/2017 14:10) Final results Test Result Flag Units (Reference) B-TYPE NATRIURETIC PEPTIDE 313 H pg/ml (5-100) CHEM 13 PANEL: (GALDINO: 03/18/2017 13:10) ( [facility] 03/18/2017 14:13) Final results Test Result Flag Units (Reference) GLUCOSE 95 mg/dL (70-110) BUN 26 H mg/dL (7-18) CREATININE 1.9 H mg/dL (0.6-1.3) Estimated GFR 37.77 mL/min Estimated GFR- 45.78 mL/min Note: Persistent reduction over 3 months in eGFR<60 mL/min/1.73 m2 defines CKD. Patients with eGFR values>=60 mL/min/1.73 m2 may also have CKD if evidence ofpersistent proteinuria. Additional information may be foundat www.[email or web address].org. SODIUM 138 mmol/L (136-145) POTASSIUM 4.2 mmol/L (3.5-5.1) CHLORIDE 105 mmol/L (98-107) CARBON DIOXIDE 21 mmol/L (21-32) CALCIUM 8.8 mg/dL (8.5-10.1) TOTAL PROTEIN 6.9 g/dL (6.4-8.2) ALBUMIN 3.5 g/dL (3.3-5.0) BILIRUBIN, TOTAL 0.6 mg/dL (0.0-1.0) ALKALINE PHOSPHATASE 91 U/L (46-116) AST (SGOT) 19 U/L (15-37) ALT (SGPT) 40 U/L (12-78) MAGNESIUM 1.9 mg/dL (1.8-2.4) CPK 150 U/L (24-260) TROPONIN I <0.05 L ng/mL (0.00-1.5) TROPONIN REFERENCE RANGE:<0.1 NEGATIVE0.1-1.5 INDETERMINANT>1.5 POSITIVE . Pulse Oximetry: 03/18/2017 12:51 O2 saturation: 96%. (FIO2 - room air). Interpretation: normal. PROGRESS AND PROCEDURES Course of Care: Patient was worked up with a chest x-ray which was unremarkable. His EKG showed atrial fibrillation. Laboratory studies showed a moderately elevated BNP I did discuss with the patient thatit is possible that he simply needs more time to get over the cough that he has had and that no particular medication will help with this. I have prescribed him Tessalon Perles for symptomatic relief. At this point there is no evidence of fluid overload and I'm not going to start the patient on anything for his congestive heart failure at this time, but will defer to his primary care physician. Patient does have appointments with cardiology and pulmonology coming up in the next 1-2 weeks, and he is encouraged to keep these appointments. Patient and family counseled in person regarding the patient's stable condition, test results, diagnosis and need for follow-up. Concerns were addressed. Old medical records reviewed. Disposition: Discharged. Condition: stable. CLINICAL IMPRESSION Chronic cough Congestive heart failure. INSTRUCTIONS Drink plenty of fluids. (Your labs show a mild congestive heart failure, which is a slowing of your heart's pump function. Otherwise, your labs look good, as does your x-ray. You may try the Tessalon Perles for your cough, though most likely, your body simply needs to work through the process of getting over the illness on its own, which is why the meds have not been as effective. Please keep your appointments with the commercial baker helper and extractor operator solvent process (lung specialist), as scheduled.). Warnings: GENERAL WARNINGS: Return or contact your physician immediately if your condition worsens or changes unexpectedly, if not improving as expected, or if other problems arise. Your Current Medications: CONTINUE TAKING THE FOLLOWING MEDICATIONS: Albuterol Sulfate HFA Inhalation. AmLODIPine Besylate Oral : Tablet 5 mg, 1 tablet daily. Apixaban Oral : Tablet 5 mg, 2 x daily. Cholecalciferol Oral : Tablet 1000 unit, 1 tablet. Omalizumab Subcutaneous : 350 mg once monthly. Rosuvastatin Calcium Oral : Tablet 40 mg, at bedtime. Spironolactone Oral : Tablet 50 mg, 2x a day. Prescription Medications: Tessalon Perles 100 mg: take 1 orally every 8 hours as needed for cough. Dispense twenty (20). No refills. Substitution is permissible. Follow-up: Follow up with a commercial baker helper and extractor operator solvent process as scheduled. Understanding of the discharge instructions verbalized by patient. (Electronically signed by Jessie Montano MD 03/18/2017 21:02)
--- NOTE | 2017-03-18 17:25 | ED ORDER SUMMARY ---
..... Patient: CAMPOS WAN OrderSheet [facility] VisitID: [id number] [place] [address] 66y, M Registration Date/Time: 03/18/2017 ORDER SHEET Weight: 91.6 kg (stated) Allergies: LIsinopril GENERAL ORDERS: Chest 2V Urgent (13:41 03/18/2017 Bakari URENA) (Ack 13:44 DILMAoeroniel) (14:01 PAZnebel R.N.) Cardiac Panel Stat (13:42 03/18/2017 Bakari URENA) (13:43 PAZnebel R.N.) (Ack 13:44 DILMAoenatalya) BNP Urgent (13:42 03/18/2017 Bakari URENA) (13:43 Haydebel R.N.) (Ack 13:44 Jamil) Terminal Operations Manager (Continuous) (13:42 03/18/2017 Bakari URENA) (13:43 Maryjo R.N.) Pulse oximeter (13:42 03/18/2017 Bakari URENA) (13:43 Haydebel R.N.) EKG - ER Stat (13:42 03/18/2017 Bakari URENA) (13:43 PAZneray R.N.) (13:46 Jamil) MEDICATION ORDERS: DuoNeb Neb Tx 1 unit dose (NOW) (13:42 03/18/2017 Bakari URENA) (15:18 JZiglar) IV FLUIDS: IV NS : initial bolus 1000 mL (1000 mL/hr), then none - (NOW) (13:41 03/18/2017 Bakari URENA) (14:01 PAZneray R.N.) Solu-MEDROL IV 125 mg (NOW) (13:41 03/18/2017 Bakari URENA) (14:01 PAZnebel R.N.) ORDER SHEET NOTES: [Electronically signed by Bruce Washington R.N. (17:45 03/18/2017)] [Electronically signed by Jessie Montano MD (21:02 03/18/2017)] [Electronically locked/signed by Bruce Washington R.N. (17:45 03/18/2017)]
--- NOTE | 2017-03-18 17:25 | ED NURSING NOTES ---
Clinical Report - Nurses [facility] [address] [place] [address] 03/18/2017 12:47 [id number] Triage time 12:51 Mar 18 2017. Acuity: LEVEL 3. Chief Complaint: COUGH. Alert. No acute distress. SEPSIS SCREEN: Sepsis Screen: negative. Infection suspected/documented. Temperature not greater than 38.3 degrees C (101 degrees F). Heart rate not greater than 90. Respiratory rate not greater than 20. No acute mental status change. TIMOTHY COMA SCORE: Timothy Coma Scale: 15- eyes open spontaneously (4); best verbal response- oriented x 4 (5); best motor response- obeys commands (6). --12:59 Yamilka Castillo R.N. 12:51 03/18/17. BP: 114/89. HR: 80. RR: 20. O2 saturation: 96%. Temp: 97.8 F. Pain level now: 05/06. --12:59 Yamilka Castlilo R.N. Weight: 91.6 kg stated. Height/Length: 69 inches Per Patient. BMI: 29.8. --12:56 Yamilka Castillo R.N. Medications Albuterol Sulfate HFA Inhalation. AmLODIPine Besylate Oral (Tablet 5 mg) 1 tablet, daily. Apixaban Oral (Tablet 5 mg), 2 x daily. Cholecalciferol Oral (Tablet 1000 unit) 1 tablet. Omalizumab Subcutaneous 350 mg, once monthly. Rosuvastatin Calcium Oral (Tablet 40 mg), at bedtime. Spironolactone Oral (Tablet 50 mg), 2x a day. --12:54 Yamilka Castillo R.N. Allergies LIsinopril. --12:54 Yamilka Castillo R.N. History Arrived by private vehicle. Historian: patient. Onset. (about 6 weeks ago). He has had chest congestion, a headache and difficulty breathing. ( dizzy). 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 PAST MEDICAL HX: Immunizations: up-to-date. SOCIAL HX: Never smoker. Alcohol use; consumes four beers a day. No drug use. No infectious disease exposure. SELF HARM ASSESSMENT: A self harm assessment was performed. The patient answered "no" to the question "Do you have thoughts of harming or killing yourself?" and "Have you recently had thoughts about harming or killing others?". FALL RISK ASSESSMENT: Fall risk assessment completed. No fall risk identified. NUTRITIONAL RISK ASSESSMENT: The nutritional risk assessment revealed no deficiencies. FUNCTIONAL ASSESSMENT: Functional assessment: no impairments noted. LEARNING NEEDS ASSESSMENT: The learning needs assessment revealed no barriers. ABUSE ASSESSMENT: Abuse assessment: The patient was asked "Do you feel safe in your home?". SKIN INTEGRITY ASSESSMENT: Skin integrity risk assessment completed. No skin integrity risk identified. --12:59 Yamilka Castillo R.N. PROBLEMS: Atrial Fibrillation. Asthma. Bronchospasm. Bronchitis. Gastroesophageal Reflux. Pericarditis. Angina. Coronary Artery Disease. Angioedema. Immunizations. --12:55 Yamilka Castillo R.N. ADDITIONAL SURGERIES: Right testicle removed . Surgery on 3rd and 4th digits right hand . Tonsillectomy. --12:55 Yamilka Castillo R.N. Interventions ID band on patient. To room. --12:59 Yamilka Castillo R.N. PHYSICAL ASSESSMENT GENERAL / NEURO / PSYCH: Alert. Oriented X 4. HEENT: Pupils equal, round and reactive to light. Mouth within normal limits upon inspection. RESPIRATORY: Mild respiratory distress. The patient can speak in full sentences. Cough productive of scant amounts of clear sputum. CVS: Capillary refill less than 2 seconds. SKIN: Skin is warm and dry. --13:00 Yamilka Castillo R.N. NURSING PROGRESS NOTES EKG time: (1256). EKG was ordered, performed by a tech and shown to the ED physician. --13:03 Palmira Flor 13:10 03/18/2017 Site #1 started via IV in the left antecubital space with an 20g angiocath, with aseptic technique and good blood return; one attempt. Blood drawn: rainbow set and cultures x1. Labeled in the presence of the patient and sent to the lab. Saline lock flushed with 10 mL saline. --13:35 Yamilka Castillo R.N. 14:03/18/2017 Started bag #1 1000 mL IV Fluids IV NS (Saline); bolus of 500 mL over 2 hour(s) via site #1 via IV pump. Allergies verified and confirmed 5 rights. IV patency established. IV site checked: no pain, redness, or swelling. IV flushed thoroughly pre- and post-medication administration. --14:01 Yamilka Castillo R.N. 14:03/18/2017 SOLU-MEDROL (MethylPREDNISolone Sodium Succ) IVP 125 mg given over 2 minute(s) via site #1. Allergies verified and confirmed 5 rights. IV patency established. IV site checked: no pain, redness, or swelling. IV flushed thoroughly pre- and post-medication administration. IVP given by RN. --14:01 Yamilka Castillo R.N. 14:11 03/18/17. BP: 118/85. HR: 85. RR: 26. O2 saturation: 96%. Pain level now: 05/06. --14:12 Yamilka Castillo R.N. 15:03/18/2017 Site #1 reassessed. Infiltration Scale: Grade 4- skin discolored, bruised, or swollen and cool to touch and edema less than 1 inch. --15:06 Yamilka Castillo R.N. 15:03/18/2017 Site #1 removed. Catheter intact. Bandage applied. --15:06 Yamilka Castillo R.N. 15:04 03/18/17. BP: 112/81. HR: 83. RR: 26. O2 saturation: 96%. --15:08 Yamilka Castillo R.N. Reassessment after fluids administered and medication administered. He is calm and resting quietly. Overall patient status is improved- he states feels better. RESPIRATORY: The patient reports cough is still present but improving and currently dry. Denies difficulty breathing. No respiratory distress. SKIN: Skin is warm and dry. --15:08 Yamilka Castillo R.N. 14:24 03/18/2017 Duoneb (Ipratropium-Albuterol) Neb TX Nebulizer 1 unit dose given. Given by the respiratory therapist. Allergies verified and confirmed 5 rights. Dago Bullard --15:18 DixonDago goldman 16:33 03/18/17. BP: 107/82. HR: 93. RR: 23. O2 saturation: 96%. Pain level now: 02/03. --16:34 Yamilka Castillo R.N. The patient is calm and resting quietly. Overall patient status is improved- he states feels better. RESPIRATORY: The patient reports cough that is dry. No respiratory distress. --16:34 Yamilka Castillo R.N. 17:20 03/18/2017 IV Fluids IV NS Discontinued: bag #1 infused. Total amount infused: 1000 mL. IV patency established. IV site checked: no pain, redness, or swelling. IV flushed thoroughly. --17:44 Bruce Washington R.N. DISPOSITION / DISCHARGE [facility]-- 13:38 03/18/17. BP: 156/93. HR: 79. RR: 16. O2 saturation: 98%. Pain level now: 07/06. --13:39 Yamilka Castillo R.N. --END STRIKE>> Charted on wrong patient. --14:04 Yamilka Castillo R.N. Departure time: 17:30 Mar 18 2017. Condition at departure: improved. No learning barriers present. Discharge instructions provided and reviewed with the patient. Reviewed warnings. Reviewed medication(s). Treatments reviewed. Reviewed referrals. Patient verbalized understanding. Written instructions provided in Greek. The patient was discharged home. He left the Emergency Department ambulatory and via private vehicle. Patient driving. --17:43 Bruce Washington R.N. 17:42 03/18/17. BP: 119/68. HR: 95. RR: 18. O2 saturation: 97%. Temp: 97.6 F. Pain level now 0/10. --17:43 Bruce Washington R.N. Locked/Released at 03/18/2017 17:45 by Bruce Washington R.N.
--- NOTE | 2017-03-18 21:03 | ED MED RECONCILIATION SUMMARY ---
Patient: CAMPOS WAN Medication Reconciliation Report [facility] VisitID: [id number] [place] [address] 66y, M Registration Date/Time: 03/18/2017 Weight: 91.6 kg Height/Length: 69 in. BMI: 29.8 ALLERGIES: LIsinopril The patient's Home Medications are listed below: CONTINUE TAKING THE FOLLOWING MEDICATIONS: Albuterol Sulfate HFA Inhalation AmLODIPine Besylate Oral (5 mg) 1 tablet, daily Apixaban Oral (5 mg), 2 x daily Cholecalciferol Oral (1000 unit) 1 tablet Omalizumab Subcutaneous 350 mg, once monthly Rosuvastatin Calcium Oral (40 mg), at bedtime Spironolactone Oral (50 mg), 2x a day The source(s) of the original Home Medication information: Not obtained. The following Medications were given to the patient in the Emergency Department: IV NS IV Fluids bolus 500 mL over 2 hour(s), administered: 03/18/2017 2:01:00 PM SOLU-MEDROL [IVP] IVP 125 mg, administered: 03/18/2017 2:01:00 PM Duoneb [Neb Tx] Neb TX 1 unit dose, administered: 03/18/2017 2:24:00 PM The following Medications were prescribed to the patient: Tessalon Perles 100 mg: take 1 orally every 8 hours as needed for cough. Dispense twenty (20). No refills. Substitution is permissible. -- Jessie Montano MD
--- NOTE | 2017-03-18 21:03 | ED MAR SUMMARY ---
..... Medication Administration Record [facility] [address] [place] [address] Patient: CAMPOS WAN Visit ID: [id number] 66y, M Weight: 91.6 kg Height/Length: 69 in BMI: 29.8 ALLERGIES: LIsinopril Start 14:01 03/18/2017 Yamilka Castillo RSteven, Stop 17:20 03/18/2017 Bruce Washington R.N. Medication Administered: IV NS (SALINE), Dose: IV Fluids, Bolus: 500 mL over 2 hour(s), Dispensed: 1000 mL bag, Site: #1 left AC. Medication Ordered: IV NS : initial bolus 1000 mL (1000 mL/hr), then none - (NOW). Given 14:03/18/2017 Yamilka Castillo R.N. Medication Administered: SOLU-MEDROL [IVP] (METHYLPREDNISOLONE SODIUM SUCC), Dose: 125 mg IVP over 2 minute(s), Site: #1 left AC. Medication Ordered: Solu-MEDROL IV 125 mg (NOW). Given 14:24 03/18/2017 Dago Bullard, Medication Administered: DUONEB [NEB TX] (IPRATROPIUM-ALBUTEROL), Dose: 1 unit dose Nebulizer Neb TX. Medication Ordered: DuoNeb Neb Tx 1 unit dose (NOW).
--- NOTE | 2017-03-18 21:03 | ED DISCHARGE INSTRUCTIONS ---
Patient: CAMPOS WAN General Instructions [facility] VisitID: [id number] [place] [address] 66y, M Registration Date/Time: 03/18/2017 Chronic cough Congestive heart failure. INSTRUCTIONS Drink plenty of fluids. (Your labs show a mild congestive heart failure, which is a slowing of your heart's pump function. Otherwise, your labs look good, as does your x-ray. You may try the Tessalon Perles for your cough, though most likely, your body simply needs to work through the process of getting over the illness on its own, which is why the meds have not been as effective. Please keep your appointments with the wood and wood products factory worker and maintenance technician (lung specialist), as scheduled.). Warnings: GENERAL WARNINGS: Return or contact your physician immediately if your condition worsens or changes unexpectedly, if not improving as expected, or if other problems arise. Your Current Medications: CONTINUE TAKING THE FOLLOWING MEDICATIONS: Albuterol Sulfate HFA Inhalation. AmLODIPine Besylate Oral : Tablet 5 mg, 1 tablet daily. Apixaban Oral : Tablet 5 mg, 2 x daily. Cholecalciferol Oral : Tablet 1000 unit, 1 tablet. Omalizumab Subcutaneous : 350 mg once monthly. Rosuvastatin Calcium Oral : Tablet 40 mg, at bedtime. Spironolactone Oral : Tablet 50 mg, 2x a day. Prescription Medications: Tessalon Perles 100 mg: take 1 orally every 8 hours as needed for cough. Dispense twenty (20). No refills. Substitution is permissible. Follow-up: Follow up with a wood and wood products factory worker and maintenance technician as scheduled. Understanding of the discharge instructions verbalized by patient. ADDITIONAL INFORMATION Cough, Chronic, Uncertain Cause(Adult) Everyone has had a cough as part of the common cold, flu or bronchitis. This kind of cough occurs along with an achy feeling, low grade fever, nasal and sinus congestion, scratchy or sore throat. This gets better in two to three weeks. A cough that lasts longer than three weeks may is usually due to other causes. Based on your exam today, the exact cause of your cough is not certain. Below are some of the common causes for persistent cough. If the cough does not improve over the next two weeks, further testing may be needed. Follow up with your doctor as directed. Smokers Cough worse. The cough is from irritation in the air passages. Talk to your doctor about quitting. Nicotine patches, gum, inhaler, nasal spray or another method may make it easier. Post-Nasal Drip A cough that is worse at night may be due to postnasal drip. Excess mucus in the nose drains from the back of your nose to your throat and triggers the cough reflex. This may be due to a sinus infection or allergy. Common allergens include: dust, smoke, pollen mold, pets, cleaning agents, room deodorizers and chemical fumes. Over the counter antihistamines/decongestant may be helpful for allergies. A sinus infection requires antibiotic treatment. See your doctor if symptoms continue. Medicines Certain prescribed medicines can cause a chronic cough in some people: YOJANA inhibitors for high blood pressure. These include Lotensin (benazepril), Capoten (captopril), Vasotec (enalapril), Monopril (fosinopril), Prinivil and Zestril (lisinopril), Accupril (quinapril), Altace (ramipril), and others. Beta-blockers for high blood pressure and other conditions. These include Inderal (propranolol), Tenormin (atenolol), Lopressor (metoprolol), Corgard (nadolol), and others. Let your doctor know if you are taking any of these. Asthma Cough may be the only sign of mild asthma. Your doctor can do lung testing to find out if this is the cause. Your response to a trial of asthma medicines may also help make the diagnosis. Acid Reflux (Heartburn) The esophagus is a tube that carries food from the mouth to the stomach.A valve at its lower endprevents stomach acids from flowing upward. If this valve does not work properly, acid from the stomach enters the esophagus. This may cause a burning pain in the upper abdomen or lower chest, belching, or cough. Symptoms are often worse when lying flat. Avoid eating or drinking before bedtime. Try using extra pillows to raise your upper body or place 4-inch blocks under the head of your bed. You may try an [id number] antacid (Tums or Mylanta) or an acid-blocking medicine (Pepcid AC, Tagamet HB, Zantac 75, or Prilosec OTC). Stronger medicines for this condition can be prescribed by your doctor. Follow Up with your doctor as directed if your cough does not improve over the next2 weeks. Further testing may be needed. [NOTE: If an x-ray was made, another specialist will review it. You will be notified of any new findings that may affect your care.] Get Prompt Medical Attention if any of the following occur: Wheezing or difficulty breathing Fever of 100.4F (38C) or higher, or as directed by your healthcare provider Unexpected weight loss Coughing up large amounts of colored sputum Coughing up blood Night sweats (sheets and pajamas get soaking wet) You have been given the following additional information: Cough, Chronic, Uncertain Cause, (Adult) (Electronically signed by Jessie Montano MD 03/18/2017 21:02)
--- NOTE | 2017-03-18 21:03 | ED MAR SUMMARY ---
..... Medication Administration Record [facility] [address] [place] [address] Patient: CAMPOS WAN Visit ID: [id number] 66y, M Weight: 91.6 kg Height/Length: 69 in BMI: 29.8 ALLERGIES: LIsinopril Start 14:01 03/18/2017 Yamilka Castillo RSteven, Stop 17:20 03/18/2017 Bruce Washington R.N. Medication Administered: IV NS (SALINE), Dose: IV Fluids, Bolus: 500 mL over 2 hour(s), Dispensed: 1000 mL bag, Site: #1 left AC. Medication Ordered: IV NS : initial bolus 1000 mL (1000 mL/hr), then none - (NOW). Given 14:03/18/2017 Yamilka Castillo R.N. Medication Administered: SOLU-MEDROL [IVP] (METHYLPREDNISOLONE SODIUM SUCC), Dose: 125 mg IVP over 2 minute(s), Site: #1 left AC. Medication Ordered: Solu-MEDROL IV 125 mg (NOW). Given 14:24 03/18/2017 Dago Bullard, Medication Administered: DUONEB [NEB TX] (IPRATROPIUM-ALBUTEROL), Dose: 1 unit dose Nebulizer Neb TX. Medication Ordered: DuoNeb Neb Tx 1 unit dose (NOW).
--- NOTE | 2017-03-18 21:03 | ED DISCHARGE INSTRUCTIONS ---
Patient: CAMPOS WAN General Instructions [facility] VisitID: [id number] [place] [address] 66y, M Registration Date/Time: 03/18/2017 Chronic cough Congestive heart failure. INSTRUCTIONS Drink plenty of fluids. (Your labs show a mild congestive heart failure, which is a slowing of your heart's pump function. Otherwise, your labs look good, as does your x-ray. You may try the Tessalon Perles for your cough, though most likely, your body simply needs to work through the process of getting over the illness on its own, which is why the meds have not been as effective. Please keep your appointments with the administrative accountant and vamper (lung specialist), as scheduled.). Warnings: GENERAL WARNINGS: Return or contact your physician immediately if your condition worsens or changes unexpectedly, if not improving as expected, or if other problems arise. Your Current Medications: CONTINUE TAKING THE FOLLOWING MEDICATIONS: Albuterol Sulfate HFA Inhalation. AmLODIPine Besylate Oral : Tablet 5 mg, 1 tablet daily. Apixaban Oral : Tablet 5 mg, 2 x daily. Cholecalciferol Oral : Tablet 1000 unit, 1 tablet. Omalizumab Subcutaneous : 350 mg once monthly. Rosuvastatin Calcium Oral : Tablet 40 mg, at bedtime. Spironolactone Oral : Tablet 50 mg, 2x a day. Prescription Medications: Tessalon Perles 100 mg: take 1 orally every 8 hours as needed for cough. Dispense twenty (20). No refills. Substitution is permissible. Follow-up: Follow up with a administrative accountant and vamper as scheduled. Understanding of the discharge instructions verbalized by patient. ADDITIONAL INFORMATION Cough, Chronic, Uncertain Cause(Adult) Everyone has had a cough as part of the common cold, flu or bronchitis. This kind of cough occurs along with an achy feeling, low grade fever, nasal and sinus congestion, scratchy or sore throat. This gets better in two to three weeks. A cough that lasts longer than three weeks may is usually due to other causes. Based on your exam today, the exact cause of your cough is not certain. Below are some of the common causes for persistent cough. If the cough does not improve over the next two weeks, further testing may be needed. Follow up with your doctor as directed. Smokers Cough worse. The cough is from irritation in the air passages. Talk to your doctor about quitting. Nicotine patches, gum, inhaler, nasal spray or another method may make it easier. Post-Nasal Drip A cough that is worse at night may be due to postnasal drip. Excess mucus in the nose drains from the back of your nose to your throat and triggers the cough reflex. This may be due to a sinus infection or allergy. Common allergens include: dust, smoke, pollen mold, pets, cleaning agents, room deodorizers and chemical fumes. Over the counter antihistamines/decongestant may be helpful for allergies. A sinus infection requires antibiotic treatment. See your doctor if symptoms continue. Medicines Certain prescribed medicines can cause a chronic cough in some people: YOJANA inhibitors for high blood pressure. These include Lotensin (benazepril), Capoten (captopril), Vasotec (enalapril), Monopril (fosinopril), Prinivil and Zestril (lisinopril), Accupril (quinapril), Altace (ramipril), and others. Beta-blockers for high blood pressure and other conditions. These include Inderal (propranolol), Tenormin (atenolol), Lopressor (metoprolol), Corgard (nadolol), and others. Let your doctor know if you are taking any of these. Asthma Cough may be the only sign of mild asthma. Your doctor can do lung testing to find out if this is the cause. Your response to a trial of asthma medicines may also help make the diagnosis. Acid Reflux (Heartburn) The esophagus is a tube that carries food from the mouth to the stomach.A valve at its lower endprevents stomach acids from flowing upward. If this valve does not work properly, acid from the stomach enters the esophagus. This may cause a burning pain in the upper abdomen or lower chest, belching, or cough. Symptoms are often worse when lying flat. Avoid eating or drinking before bedtime. Try using extra pillows to raise your upper body or place 4-inch blocks under the head of your bed. You may try an ivsl-unz-eursaex antacid (Tums or Mylanta) or an acid-blocking medicine (Pepcid AC, Tagamet HB, Zantac 75, or Prilosec OTC). Stronger medicines for this condition can be prescribed by your doctor. Follow Up with your doctor as directed if your cough does not improve over the next2 weeks. Further testing may be needed. [NOTE: If an x-ray was made, another specialist will review it. You will be notified of any new findings that may affect your care.] Get Prompt Medical Attention if any of the following occur: Wheezing or difficulty breathing Fever of 100.4F (38C) or higher, or as directed by your healthcare provider Unexpected weight loss Coughing up large amounts of colored sputum Coughing up blood Night sweats (sheets and pajamas get soaking wet) You have been given the following additional information: Cough, Chronic, Uncertain Cause, (Adult) (Electronically signed by Jessie Montano MD 03/18/2017 21:02)
--- NOTE | 2017-03-18 21:03 | ED MED RECONCILIATION SUMMARY ---
Patient: CAMPOS WAN Medication Reconciliation Report [facility] VisitID: [id number] [place] [address] 66y, M Registration Date/Time: 03/18/2017 Weight: 91.6 kg Height/Length: 69 in. BMI: 29.8 ALLERGIES: LIsinopril The patient's Home Medications are listed below: CONTINUE TAKING THE FOLLOWING MEDICATIONS: Albuterol Sulfate HFA Inhalation AmLODIPine Besylate Oral (5 mg) 1 tablet, daily Apixaban Oral (5 mg), 2 x daily Cholecalciferol Oral (1000 unit) 1 tablet Omalizumab Subcutaneous 350 mg, once monthly Rosuvastatin Calcium Oral (40 mg), at bedtime Spironolactone Oral (50 mg), 2x a day The source(s) of the original Home Medication information: Not obtained. The following Medications were given to the patient in the Emergency Department: IV NS IV Fluids bolus 500 mL over 2 hour(s), administered: 03/18/2017 2:01:00 PM SOLU-MEDROL [IVP] IVP 125 mg, administered: 03/18/2017 2:01:00 PM Duoneb [Neb Tx] Neb TX 1 unit dose, administered: 03/18/2017 2:24:00 PM The following Medications were prescribed to the patient: Tessalon Perles 100 mg: take 1 orally every 8 hours as needed for cough. Dispense twenty (20). No refills. Substitution is permissible. -- Jessie Montano MD
== END 2017-03-18 17:30 | disposition home or self-care (01) ==
LOC: ED SRH 12:44
DX: R05 Cough (principal); I50.9 Heart failure, unspecified; I48.91 Unspecified atrial fibrillation; I11.0 Hypertensive heart disease with heart failure; K21.9 Gastro-esophageal reflux disease without esophagitis; J45.909 Unspecified asthma, uncomplicated; I25.10 Atherosclerotic heart disease of native coronary artery without angina pectoris; E78.5 Hyperlipidemia, unspecified; E78.00 Pure hypercholesterolemia, unspecified; I25.2 Old myocardial infarction
CPT/HCPCS: 90100; 90616; 91320; 92610; 92720; 95059